=== PATIENT | male | born 1985 | race Caucasian/White ===

== ENCOUNTER 2020-06-15 12:42 | Outpatient (REF) | payer OTHER, SELFPAY | END 2020-06-15 12:43 | disposition home or self-care (01) | LOC: HO.LAB 12:42 | PROVIDERS: Visit Provider Internal Medicine | DX: Z20.828 Contact with and (suspected) exposure to other viral communicable diseases (principal) | CPT/HCPCS: C9803; U0003 ==

== ENCOUNTER 2021-02-07 07:33 | Emergency (ER) | payer OTHER, SELFPAY ==
--- NOTE | ~2021-02-07 | CT_ITS ---
EXAMINATION: CT HEAD WITHOUT CONTRAST CLINICAL INFORMATION: Fall with head injury COMPARISON: None TECHNIQUE: Contiguous axial imaging was performed from the skull base to vertex without intravenous administration of contrast. This CT examination was performed using dose optimization techniques as appropriate, variously including the following: *Automated exposure control *Adjustment of mA and/or kV according to patient size (this includes techniques or standardized protocols for targeted exams where dose is matched to indication/reason for exam; i.e. extremities or head) *Use of iterative reconstruction technique DLP: 665 mGy-cm FINDINGS: There is no evidence of acute intracranial hemorrhage or territorial infarction. No abnormal mass effect or midline shift is seen. No extra-axial fluid collections are identified. The ventricles are normal in size. 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 The osseous structures and soft tissues are normal. The mastoid air cells and visualized portions of the paranasal sinuses are well aerated. CT/CT head/brain wo con IMPRESSION: No acute intracranial pathology. 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 No old studies available for comparison.
[2021-02-07 07:47] VITALS: BP 110/74; BP 138/87; PULSE 48; PULSE 76; RESP 14; TEMP 37.1; O2SAT 99; BMI 21.9
--- NOTE | 2021-02-07 07:48 | ED.FALL ---
HPI - Fall General Chief Complaint: Fall Stated Complaint: HEAD STRIKE,MECHANICAL FALL Time Seen by Provider: 02/07/21 07:46 Source: patient and EMS Mode of arrival: EMS Limitations: other (Multi substance abuse) History of Present Illness HPI Narrative: 36-year-old male came in by ambulance for evaluation of fall and head injury. This is a 36-year-old male with history of polysubstance abuse and being homeless came in by ambulance for evaluation of head injury. Patient is lethargic but arousable, able to provide history patient admitted to using multiple bags heroin last night, tripped and fell hurt his face, no other pain. No nausea, no vomiting, no dizziness, no neck pain. Related Data Allergies Allergy/AdvReac Type Severity Reaction Status Date / Time No Known Allergies Allergy Verified 02/07/21 07:47 Review of Systems Review of Systems: All other systems are reviewed and are negative Constitutional: Reports as per HPI and Reports no additional constitutional complaints Eyes: Reports as per HPI and Reports no additional eye complaints Reports system reviewed and no additional complaints, except as documented Cardiovascular: Reports as per HPI and Reports no additional cardiovascular complaints Respiratory: Reports as per HPI and Reports no additional respiratory complaints Gastrointestinal: Reports as per HPI and Reports no additional gastrointestinal complaints Genitourinary: Reports no additional female genitourinary complaints Musculoskeletal: Reports no additional musculoskeletal complaints Skin/Breast: Reports system reviewed and no additional complaints, except as docu Psychiatric: Reports no additional psychiatric complaints Endocrine: Reports no additional endocrine complaints Hematologic/Lymphatic: Reports no additional hematologic/lymphatic complaints Allergic/Immunologic: Reports no additional allergic/immunologic complaints Reports system reviewed and no additional complaints, except as documented and Reports Abnormal speech present [facility] Past Medical History Medical History (Updated 02/07/21 @ 09:32 by Dana Powers MD) Substance abuse Social History Social History Alcohol intake: current Alcohol intake frequency: other Alcohol type: beer Patient Tobacco Use Status: Current someday Tobacco user Substance Use Type: Crack/Cocaine and Heroin Substance Use Frequency: Chronic Longstanding Last Used Substance: Just Prior to Admission Physical Exam Vital Signs: Vital Signs: Last Vital Signs Temp 98.8 F 02/07/21 07:47 Pulse 48 L 02/07/21 07:47 Resp 14 02/07/21 07:47 BP 110/74 02/07/21 07:47 Pulse Ox 99 02/07/21 07:47 Body Mass Index 21.9 Vital signs have been reviewed as appeared to be correct. Blood pressure normal. Heart rate normal. Respiration rate normal. Temperature normal. Oxygen saturation normal. Appearance: Alert. Oriented X3. No acute distress. Head: Normal external exam. Normocephalic. 3 cm oblique incision in the right side of the forehead, no active bleeding. No Farrar signs noted. No raccoon eyes noted Eyes: PERRLA. EOMI. Conjunctiva and sclera normal. Eyelids normal. ENT: TM's Normal. Pharynx normal. Uvula midline. Moist mucous membranes. No trismus noted. No drooling noted. No muffled voice noted. Neck: Normal inspection. Neck supple. FROM. No adenopathy. Thyroid Normal. No meningeal signs. No neck mass noted. CVS: Normal heart rate and rhythm. Heart sound normal. No murmurs noted. Pulses normal throughout. Respiratory: No respiratory distress. Painless inspiration. Breath sounds normal. No wheezes/rales/rhonchi noted. Chest nontender. No accessory muscle usage noted or decreased air movement noted. Abdomen: Soft and nontender. Bowel sounds normal in all 4 quadrants. No distention noted. No organomegaly noted. No visible injury noted. Back: No CVA tenderness. Full range of motion noted. Skin: Skin warm and dry. Normal skin color. Normal skin turgor. No rashes/lesions/lacerations noted. Extremities: No lower extremity edema. Extremities exhibit normal range of motion. Extremities nontender. Neuro: Oriented X 3. No motor deficit. No sensory deficit. Reflexes normal. Course Course Course Narrative: 36-year-old male with history of substance abuse, came in after having mechanical fall in the street, sustaining right forehead laceration. Patient is awake woken emergency department, head CT is unremarkable, GCS of 15. Procedures Laceration Laceration 1: Site: face (Right forehead) Size (cm): 3 Description: linear Depth: simple, single layer Pre-repair: wound explored and irrigated extensively Skin layer closed with: other (Dermabond) Discharge Plan Discharge Clinical Impression: Fall, Head injury, Forehead laceration, Drug abuse Patient Disposition: Home, Self-Care Instructions: Facial Laceration (ED) Additional Instructions: Follow-up with your primary doctor.
[2021-02-07] MEDS: Diphth,Pertus(ACell),Tet Adult 0.5 ML SYRINGE IM (07:56)
--- NOTE | 2021-02-07 09:53 | PC.NURSE ---
pt continues to rest in stretcher rr even/unlabored, alert to light tactile stimuli, satting 99-100% on ra. ct scan clear.
--- NOTE | 2021-02-07 10:34 | PC.NURSE ---
pt ambulating to and from restroom w steady gait.
--- NOTE | 2021-02-07 11:51 | PC.NURSE ---
pt has been intermittently dozing off throughout er stay, requiring tactile stimuli to remain awake. pt reminded several times following negative work up that if pt does not display sobriety (pt is falling asleep in conversation, slumping over feet when prompted to put shoes on) that pt will recieve nasal narcan dose that is ordered. pt getting agitated w this rn, swearing. given dc paper work and pt has signed.
== END 2021-02-07 11:53 | disposition home or self-care (01) ==
LOC: HO.ED 11:19
PROVIDERS: Emergency Provider Emergency Medicine
DX: S01.81XA Laceration without foreign body of other part of head, initial encounter (principal); F11.10 Opioid abuse, uncomplicated; F14.10 Cocaine abuse, uncomplicated; G44.309 Post-traumatic headache, unspecified, not intractable; W18.30XA Fall on same level, unspecified, initial encounter; Y93.9 Activity, unspecified; Y92.410 Unspecified street and highway as the place of occurrence of the external cause; Y99.9 Unspecified external cause status; F17.200 Nicotine dependence, unspecified, uncomplicated; Z71.6 Tobacco abuse counseling; Z79.899 Other long term (current) drug therapy; Z71.51 Drug abuse counseling and surveillance of drug abuser; Z59.0 Homelessness
CPT/HCPCS: 12013; 70450; 90471; 90715; 99284

== ENCOUNTER 2023-03-29 19:41 | Inpatient (IN) | payer OTHER, SELFPAY ==
--- NOTE | ~2023-03-29 | XR_ITS ---
EXAMINATION: XR WRIST, LEFT XR HAND, LEFT CLINICAL INFORMATION: Swelling and redness COMPARISON: None available. TECHNIQUE: 3 views of the left hand and wrist obtained FINDINGS: There is significant soft tissue swelling along the thenar eminence and also along the dorsal aspect of the hand. I do not appreciate any underlying radiopaque foreign body or soft tissue gas. No acute fracture or dislocation. No bony destructive lesions or erosions. No periosteal reaction. No significant degenerative changes. XR/XR hand wrist LT IMPRESSION: Significant soft tissue swelling along the thenar eminence and also along the dorsal aspect of the hand. I do not appreciate any radiopaque foreign body or soft tissue gas.
[2023-03-29 19:57] VITALS: BP 144/94; PULSE 85; RESP 18; TEMP 37.2; O2SAT 99; BMI 19.2
--- NOTE | 2023-03-29 19:57 | ED_ITS ---
HPI - General Adult General Chief complaint: Extremity Problem Stated complaint: hand swollen Time Seen by Provider: 03/29/23 22:50 Source: patient Mode of arrival: ambulatory Limitations: no limitations History of Present Illness HPI narrative: 38-year-old male with a history of injection drug and cellulitis of his left hand use who presents emergency department for evaluation of swelling and pain of his left hand x2 days. The patient does inject heroin daily. He is also on methadone. He denies recently injecting into his left hand. He states however his left hand is been infected at least twice over the last 2 months, he states that 1 month prior he was at [facility] with a left hand infection your required surgical drainage of the infection. He states that over the past 2 days his left hand is become swollen, red and painful. He denied fever, chills, rhinorrhea, sore throat, cough, chest pain, shortness of breath, fatigue, nausea or vomiting. Patient is a methadone maintenance program he states that he gets methadone 85 mg daily but he missed his dose today. Related Data Home Medications Medication Instructions Recorded Confirmed methadone 10 mg/mL oral concentrate 85 mg PO DAILY 03/30/23 Allergies Allergy/AdvReac Type Severity Reaction Status Date / Time No Known Allergies Allergy Verified 03/29/23 19:55 [facility] Past Medical History [facility] Narrative: Past medical history: Opiate use disorder, methadone maintenance, left hand cellulitis. Surgical history: Surgical drainage of left hand infection 1 month prior at [facility]. Social history: Patient states that he is homeless and he lives in a tent with his girlfriend. He does smoke cigarettes daily. He drinks alcohol 2 to 3 times a week. He injects heroin daily. Medical History Substance abuse Social History Social History Alcohol intake: current Alcohol intake frequency: holidays/special occasions only Alcohol type: beer Patient Tobacco Use Status: Current everyday Tobacco user Smoked in Last 30 Days: Yes Use of substances other than those prescribed or required for medical reasons: Yes Substance Use Type: Crack/Cocaine Substance Use Frequency: Chronic Longstanding Last Used Substance: Days (ago) Advance Directives: No Advance Directives Information Provided: No Nutrition Risks: No Nutritional Risk Physical Exam ED Vital Signs: Vital Signs - 24 hr 03/29/23 19:57 03/29/23 22:40 03/30/23 00:15 Temperature 99 F 98.7 F Pulse Rate 85 66 Respiratory Rate 18 18 12 Blood Pressure 144/94 H 102/72 Pulse Oximetry 99 97 Oxygen Delivery Method Room Air Room Air BMI result Body Mass Index 19.2 Vital signs revealed an elevated blood pressure of 144/94 otherwise unremarkable Exam: General: Somnolent, answers questions appropriately, in no distress Head: Normocephalic, atraumatic EENT: PERRL, Lids normal, sclera normal, conjunctiva normal, nose normal , ears normal, throat without erythema or exudates Neck: Supple, no adenopathy, trachea midline and nontender Lung: breath sounds symmetric, no wheezing, rales or rhonchi Chest: symmetric movement, nontender Heart: regular rate and rhythm, normal S1, S2 no murmurs or rubs Abdomen: soft, non-tender, nondistended, normal bowel sounds Back: no vertebral tenderness, no CVAT Extremities: The patient has a superficial large abscess to the left lateral aspect of the thumb, the patient's left hand is erythematous with diffuse induration/swelling more prominent over the thenar eminence. Neuro: Somnolent, oriented, normal speech, cranial nerves intact, moves all extremities symmetrically Psych: Pleasant, cooperative Course Course Course Narrative: RME: 38 yold male presents to the ED for left hand swelling for the past couple of days. Patient has pmh of IV drug use. dEnies injection into hand. labs and xray ordered Medications Administered Generic Name Dose Route Start Last Admin Trade Name Freq PRN Reason Stop Dose Admin Sodium Chloride 3 ml 03/30/23 08:00 03/30/23 07:31 0.9 % Sodium Chloride Flush 3 Ml Syringe IVFLUSH 3 ml QSHIFT DEE Administration Discontinued Medications Generic Name Dose Route Start Last Admin Trade Name Freq PRN Reason Stop Dose Admin Diphenhydramine HCl 50 mg 03/30/23 00:58 03/30/23 01:10 Diphenhydramine Hcl 50 Mg/Ml Vial IVPUSH 03/30/23 00:59 50 mg ONCE STA Administration Vancomycin HCl 1,500 mg/ 500 mls @ 333.333 mls/hr 03/29/23 23:10 03/30/23 03:34 Sodium Chloride IV 03/30/23 00:39 Infused ONCE ONE Infusion Ceftriaxone Sodium 1 gm/ 50 mls @ 100 mls/hr 03/29/23 23:10 03/30/23 00:15 Sodium Chloride IV 03/29/23 23:39 Infused ONCE ONE Infusion Sodium Chloride 1,000 mls @ 999 mls/hr 03/29/23 23:38 03/30/23 00:30 Ns IV 03/30/23 00:38 Infused .Q1H1M STA Infusion Ketorolac Tromethamine 15 mg 03/29/23 23:10 03/29/23 23:41 Ketorolac Tromethamine 15 Mg/Ml Vial IVPUSH 03/29/23 23:11 15 mg ONCE STA Administration Methadone HCl 20 mg 03/29/23 23:10 03/30/23 00:02 Methadone Hcl 20 Mg/2 Ml Oral.Conc PO 03/29/23 23:11 20 mg ONCE ONE Administration Procedures Abscess I/D Site: hand Side (if applicable): left Technique: incised with blade Amount of fluid expressed (mL): 30 Sent for culture/gram staining?: Yes Irrigation: No Packing used?: none Complications: pain Medical Decision Making Medical Decision Making MDM Narrative: 38-year-old male with history of opiate use disorder, injects heroin daily, on a methadone maintenance program, cellulitis of the left hand required surgical drainage 1 month prior [facility] who presents emergency department for evaluation of 2 days of left hand swelling, erythema and pain. Patient's exam did reveal a superficial abscess to left thumb which was incised and drained by me here in the emergency department, approximately 30 cc of purulent material was expressed from the incision and a wound culture was sent to the lab. Following laboratory evaluation was ordered: CBC, CMP, lactic acid, CRP, ESR, blood cultures x2, x-ray of the left hand. 2321: Laboratory evaluation was [place] [address] with a left shift 84 neutrophils, elevated CRP 5.59 elevated ESR 43. X-rays did not reveal any abnormal gas pattern but did reveal significant soft tissue swelling of the hand mainly over the thenar eminence. The patient was treated with vancomycin 1500 mg IV and ceftriaxone 1 g IV. Patient was given methadone 40 mg orally to prevent opiate withdrawal since the patient is on a methadone maintenance program and did not get his methadone today. Patient's dose we confirmed in the morning. Patient also given Toradol 15 mg IV for his pain. I did discuss admission with the covering orthopedic provider and with the covering hospitalist. 0059: Patient complained of pruritus, patient does not have a rash he does not appear to be red I asked the nurse to reduce the rate of infusion of the vancomycin and the patient was ordered to get Benadryl 50 mg IV. At this time I do not think that the patient has allergic reaction and his symptoms are just consistent with receiving vancomycin. Differential Diagnosis Differential Diagnoses: The differential diagnosis associated with the presentation includes Differential diagnosis includes was not limited to cellulitis of the left hand, superficial abscess , deep abscess, Admission/Observation Consideration of admission/observation: Escalation of care including admission/observation considered Consult Healthcare Provider Management of the patient was discussed with: Hospitalist (Dr. Dawson) and Metal Treater (Physician assistant professor of dietetics, Brett Guzmán) Lab Data MDM Lab Attestation statement: I reviewed the patient's lab results. My interpretation patient's laboratory evaluation is as follows: WBC elevated 13,800, left shift 84 neutrophils. CRP elevated 5.59. ESR elevated 43. Lactic acid elevated 2.4. 03/29/23 20:22 03/30/23 04:57 Labs: Lab Results 03/29/23 03/29/23 03/29/23 Range/Units 20:20 20:22 20:23 WBC 13.8 H (4.8-10.8) X10*3/uL RBC 3.80 L (4.60-5.80) X10*6/uL Hgb 13.5 L (14.0-18.0) g/dl Hct 37.6 L (42.0-52.0) % MCV 98.9 H (80.0-98.0) fL MCH 35.5 H (27.0-33.0) pg MCHC 35.9 (31.0-36.0) g/dl RDW 16.5 H (11.0-16.0) % Plt Count 305 (160-400) X10*3/uL MPV 8.2 L (9.4-12.4) fL Immature Gran % (Auto) 0.5 H (0.0-0.4) % Neut % (Auto) 84.7 H (45-73) % Lymph % (Auto) 9.9 L (20-40) % Sanders % (Auto) 4.1 (2-11) % Eos % (Auto) 0.4 (0-4) % Baso % (Auto) 0.4 (0-2) % Lymph # (Auto) 1.4 (1.2-4.9) X10*3/uL Sanders # (Auto) 0.6 (0.1-1.2) X10*3/uL Eos # (Auto) 0.1 (0.0-0.4) X10*3/uL Baso # (Auto) 0.1 (0.0-0.2) X10*3/uL Abs Immat Gran (auto) 0.07 H (0.00-0.03) X10*3/uL Absolute Neuts (auto) 11.7 H (2.0-8.3) x10*3/uL Absolute Nucleated RBC 0.000 (0.0-0.012) X10*3/uL Nucleated RBC % (auto) 0.0 (0.0-0.2) /100WBC ESR 43 H (0-15) MM/HR Sodium 140 (135-145) mmol/L Potassium 4.1 (3.3-5.1) mmol/L Chloride 98 (96-108) mmol/L Carbon Dioxide 35 H (22-29) mmol/L Anion Gap 11 L (12-20) BUN 14 (9-16) mg/dL Creatinine 0.85 (0.5-1.4) mg/dL Estim Creat Clear Calc 100.0 Estimated GFR > 60 Random Glucose 124 H (60-115) mg/dL Lactic Acid 2.4 H* (0.5-2.0) mmol/L Lactic Acid F/U @ 2Hr (0.5-2.0) mmol/L Calcium 9.6 (8.4-10.2) mg/dL Total Bilirubin 1.8 H (0.0-1.0) mg/dL AST 17 (5-37) U/L ALT 14 (0-40) U/L Alkaline Phosphatase 65 (39-117) U/L C-Reactive Protein 5.59 H (< or = 0.50) mg/dL Total Protein 8.1 H (6.5-8.0) g/dL Albumin 4.1 (3.5-5.0) g/dL 03/29/23 Range/Units 22:45 WBC (4.8-10.8) X10*3/uL RBC (4.60-5.80) X10*6/uL Hgb (14.0-18.0) g/dl Hct (42.0-52.0) % MCV (80.0-98.0) fL MCH (27.0-33.0) pg MCHC (31.0-36.0) g/dl RDW (11.0-16.0) % Plt Count (160-400) X10*3/uL MPV (9.4-12.4) fL Immature Gran % (Auto) (0.0-0.4) % Neut % (Auto) (45-73) % Lymph % (Auto) (20-40) % Sanders % (Auto) (2-11) % Eos % (Auto) (0-4) % Baso % (Auto) (0-2) % Lymph # (Auto) (1.2-4.9) X10*3/uL Sanders # (Auto) (0.1-1.2) X10*3/uL Eos # (Auto) (0.0-0.4) X10*3/uL Baso # (Auto) (0.0-0.2) X10*3/uL Abs Immat Gran (auto) (0.00-0.03) X10*3/uL Absolute Neuts (auto) (2.0-8.3) x10*3/uL Absolute Nucleated RBC (0.0-0.012) X10*3/uL Nucleated RBC % (auto) (0.0-0.2) /100WBC ESR (0-15) MM/HR Sodium (135-145) mmol/L Potassium (3.3-5.1) mmol/L Chloride (96-108) mmol/L Carbon Dioxide (22-29) mmol/L Anion Gap (12-20) BUN (9-16) mg/dL Creatinine (0.5-1.4) mg/dL Estim Creat Clear Calc Estimated GFR Random Glucose (60-115) mg/dL Lactic Acid (0.5-2.0) mmol/L Lactic Acid F/U @ 2Hr 1.1 (0.5-2.0) mmol/L Calcium (8.4-10.2) mg/dL Total Bilirubin (0.0-1.0) mg/dL AST (5-37) U/L ALT (0-40) U/L Alkaline Phosphatase (39-117) U/L C-Reactive Protein (< or = 0.50) mg/dL Total Protein (6.5-8.0) g/dL Albumin (3.5-5.0) g/dL Radiology Impression Discussion of test interpretation with radiology: I have reviewed the radiologist's reading. Radiologist Impression: XR hand wrist LT IMPRESSION: Significant soft tissue swelling along the thenar eminence and also along the dorsal aspect of the hand. I do not appreciate any radiopaque foreign body or soft tissue gas. Dictated By: David Hampton MD Chronic Conditions Patient?s care impacted by: Other (Opiate use disorder with daily injection heroin use) Discharge Plan Discharge Clinical Impression: Cellulitis of hand, left, Abscess of left hand, Heroin use disorder, severe, Methadone maintenance therapy patient Patient Disposition: Admitted As Inpatient
--- OUTSIDE RECORDS SUMMARY | 2023-03-29 20:02 | XMS_ITS | Continuity of Care Document ---
Author Name Unknown Organization [facility] ter Address [address] [place] [id number]- Care Team Providers Care Family Consumer Science Teacher Name Role Phone Angie COBOS, Alissa D Primary Care Physician Encounter [facility] [place] Date(s): 08/03/21 - 08/03/[address] [address]- Encounter Diagnosis 2019 novel coronavirus disease (COVID-19)(Final) - 08/03/21 Discharge Disposition: A-D/C Home Attending Physician: Ulises Dey MD Admitting Physician: Ulises Dey MD Referring Physician: Not on Staff, Referring MD Allergies, Adverse Reactions, Alerts No Known Allergies Immunizations Given and Recorded Vaccine Date Status Refusal Reason Meningococcal Conjugate Vaccine 12/27/12 Recorded influenza virus vaccine, inactivated 04/22/11 Neri rded hepatitis B adult vaccine 12/17/10 Recorded Medications Buprenorphine = 300 mg, Subcutaneous Injection, Every 30 days, 0 Refills, Maintenance, 01/18/21 9:07:00 EDT, Injection, Partial fill upon patient request if the prescription is for a schedule II opioid drug. Start Date: 01/18/21 Status: Ordered ledipasvir-sofosbuvir 90 mg-400 mg oral tablet 1 tablet, By Mouth, Daily, # 28 tablet, 0 Refills, Maintenance, 01/18/21 9:13:00 EDT, Tablet, Partial fill upon patient request if the prescription is for a schedule II opioid drug. Start Date: 01/18/21 Status: Ordered Problem List Condition Effective Dates Status Health Status Inform ant Neck abscess(Confirmed) Active Results Radiology Reports * Exam Date Time Procedure Performing Provider Status 08/03/21 3:03 PM Chest Portable Archambeau, Kianna; Auth (Verified) Notes: (Chest Portable) Reason For Exam: Chest Pain;Other: RESULT: Chest Portable Chest Portable Hx of Present Illness: CP, SOB since last night. CP worse w inspiration and focused on left chest wall. Cough.; Reason: Other:; Chest Pain; Clinical Question(s): Other: COMPARISON: 06/10/2021 FINDINGS: LINES AND TUBES: None. LUNGS AND PLEURA: Subtle hazy opacity in the right medial lung base, stable from prior study and thus less likely to represent an acute process. No new focal consolidation seen. Normal pulmonary vascularity. No pleural effusion. No pneumothorax. HEART, MEDIASTINUM AND YANG: Heart is normal in size. Normal upper mediastinal and hilar contour. BONES AND SOFT TISSUES: No acute abnormality. IMPRESSION: Subtle hazy opacity in the medial right lung base, stable from prior study, could be related to superimposition of bronchovascular structures, less likely to represent an acute process. May consider follow-up nonemergent CT chest for better characterization. WSN: [id number] Ordering Physician: Wayne Kaufman Dictated By: Gabbie Carmichael MD Dictated Date/Time: 08/03/21 3:13 pm Reviewed By: Gabbie Carmichael MD Signed By: Gabbie Carmichael MD Signed Date/Time: 08/03/21 3:13 pm Transcribed By: TRINIDAD Transcribed Date/Time: 08/03/21 3:09 pm Vital Signs Most recent to oldest [Reference Range]: 1 2 3 Oxygen Saturation [94-100 %] 99 % (08/03/21 6:46 PM) 99 % (08/03/21 5:37 PM) 97 % (08/03/21 4:32 PM) Pulse Rate [55-90 bpm] 61 bpm (08/03/21 6:46 PM) 53 bpm *L* (08/03/21 5:37 PM) 54 bpm *L* (08/03/21 4:32 PM) Blood Pressure [90-138/55-84 mm Hg] 120/71mm Hg (08/03/21 6:46 PM) 120/74mm Hg (08/03/21 5:37 PM) 115/71mm Hg (08/03/21 4:32 PM) Respiratory Rate [16-30 br/min] 18 br/min (08/03/21 6:46 PM) 17 br/min (08/03/21 5:37 PM) 13 br/min *L* (08/03/21 4:32 PM) Temperature [96.8-100.4 DegF] 98.1 DegF (08/03/21 6:46 PM) 98.1 DegF (08/03/21 5:37 PM) 98.0 DegF (08/03/21 4:32 PM) Mode of Delivery (Oxygen) Room air (08/03/21 6:46 PM) Room air (08/03/21 5:37 PM) Room air (08/03/21 4:32 PM) Blood pressure sites Arm, left (08/03/21 6:46 PM) Arm, left (08/03/21 5:37 PM) Arm, left (08/03/21 4:32 PM) Temperature Route Oral (08/03/21 6:46 PM) Oral (08/03/21 5:37 PM) Oral (08/03/21 4:32 PM) Social History Social History Type Response Smoking Status 10 or more cigarette s (1/2 pack or more)/day in last 30 days; Number of years: 26; entered on: 01/18/21 Sex
--- OUTSIDE RECORDS SUMMARY | 2023-03-29 20:02 | XMS_ITS | Continuity of Care Document ---
Author Name Unknown Organization [facility] Address [address] [place] [address]- Care Team Providers Care Jewelry Manager Name Role Phone Nicolas COBOS, Cori Bruce Primary Care Physic zander Encounter [facility] [place] Date(s): 09/14/19 - 09/24/19 [facility] [address] [place] [address]- [facility] Attending Physician: Admtr, Ar8 Admitting Physician: Admtr, Ar8 Referring Physician: Admtr, Ar8 Allergies, Adverse Reactions, Alerts Substance Reaction Severity Status NKA Active Medications Narcan 4 mg/0.1 mL nasal spray = 4 mg, Naris, Left, Once, may repeat every 2 to 3 minutes until patient responds make sure your family knows where you keep this so if you overdose again they may be able to save you., # 2 each, 0 Refills, Soft Stop, 02/02/19 22:47:11 EDT Start Date: 02/02/19 Status: Ordered Suboxone 2 mg-0.5 mg sublingual film 1 film, Sublingual, Daily, dissolve under the tongue, 0 Refills, Maintenance, 09/14/19 15:35:00 EST, Film Start Date: 09/14/19 Status: Ordered Social History Social History Type Response Smoking Status 10 or more cigarette s (1/2 pack or more)/day in last 30 days entered on: 02/02/19 Sex
--- OUTSIDE RECORDS SUMMARY | 2023-03-29 20:03 | XMS_ITS | Continuity of Care Document ---
Author Name Unknown Organization [facility] ter Address [address] [place] [id number]- Care Team Providers Care Special Needs Librarian Name Role Phone Angie COBOS, Alissa Lydia Primary Care Physician Encounter [facility] Date(s): 01/18/21 - 01/22/[address] [address]- Encounter Diagnosis Neck swelling(Final) - 01/18/21 Abscess(Final) - 01/18/21 Hematoma(Final) - 01/18/21 Discharge Disposition: A-D/C Home Attending Physician: Alvarado Sesay MD Admitting Physician: Rebekah Mckeon MD Referring Physician: Not on Staff, Referring MD Allergies, Adverse Reactions, Alerts Substance Reaction Severity Status NKA Active Immunizations Given and Recorded Vaccine Date Status Refusal Reason Meningococcal Conjugate Vaccine 12/27/12 Recorded influenza virus vaccine, inactivated 04/22/11 Neri rded hepatitis B adult vaccine 12/17/10 Recorded Medications Aspirin Tablet 325 mg, EC Tablet, By Mouth, Every 12 hours, PRN for Other, Prior to vanco, Routine, 01/19/21 12:43:00 EDT Notes: Do Not Crush Start Date: 01/19/21 Stop Date: 02/18/21 Status: Ordered Buprenorphine = 300 mg, Subcutaneous Injection, Every 30 days, 0 Refills, Maintenance, 01/18/21 9:07:00 EDT, Injection, Partial fill upon patient request if the prescription is for a schedule II opioid drug. Start Date: 01/18/21 Status: Ordered ibuprofen 600 mg oral tablet 600 mg, 1, tablet, By Mouth, 3 times a day, PRN, for 10 days, Take as needed for pain with food or milk, avoid alcohol, # 30 tablet, Refills 0, Tot. Refills 0, Acute 02/01/21 11:49:00 EDT, Pain , Mild, 01/22/21 11:49:00 EDT, Route to Pharmacy Electron... Start Date: 01/22/21 Stop Date: 02/01/21 Status: Ordered ledipasvir-sofosbuvir 90 mg-400 mg oral tablet 1 tablet, By Mouth, Daily, # 28 tablet, 0 Refills, Maintenance, 01/18/21 9:13:00 EDT, Tablet, Partial fill upon patient request if the prescription is for a schedule II opioid drug. Start Date: 01/18/21 Status: Ordered sulfamethoxazole-trimethoprim 800 mg-160 mg oral tablet 1 tablet, By Mouth, Every 12 hours, for 4 days, # 8 tablet, 0 Refills, Acute 01/26/21 11:46:00 EDT,01/22/21 11:46:00 EDT, Tablet, [facility], [facility] 3, Partial fill upon patient request if the prescription is for a schedule II opioid drug., 1 tab... Start Date: 01/22/21 Stop Date: 01/26/21 Status: Ordered Problem List Condition Effective Dates Status Health Status Inform ant Neck abscess(Confirmed) Active Results Orders for Microbiology Reports Name Date Anaerobic Culture (ANAEROBIC CULTURE) 06/02 Wound Deep Culture w/ Gram Smear (DEEP W OUND CULTURE) 01/20/21 Blood Culture 01/18/21 Blood Culture #2 01/18/21 Blood Culture 01/17/21 Microbiology Reports TEST:Anaerobic Culture STATUS:Auth (Verified) BODY SITE: SOURCE:OTHER COLLECTED DATE/TIME:01/20/21 8:20 AM Anaerobic Culture SPECIMEN DESCRIPTION : OTHER CULTURE RIGHT NECK SPECIAL REQUESTS : NONE CULTURE : NO ANAEROBES ISOLATED REPORT STATUS : FINAL 01/22/2021 TEST:Deep Wound Culture STATUS:Auth (Verified) BODY SITE: SOURCE:OTHER COLLECTED DATE/TIME:01/20/21 8:20 AM Deep Wound Culture SPECIMEN DESCRIPTION : OTHER CULTURE RIGHT NECK SPECIAL REQUESTS : NONE GRAM STAIN : 3+ POLYMORPHONUCLEAR LEUKOCYTES 1+ GRAM POSITIVE COCCI CULTURE : 4+ STAPHYLOCOCCUS AUREUS, METHICILLIN RESISTANT. METHICILLIN RESISTANT STAPH AUREUS SHOULD BE CONSIDERED CLINICALLY RESISTANT TO ALL BETA-LACTAMS. REPORT STATUS : FINAL 01/22/2021 ORGANISM 4+ STAPHYLOCOCCUS AUREUS, METHICILLIN RESISTANT. METHICILLIN RESISTANT STAPH AUREUS SHOULD BE CONSIDERED CLINICALLY RESISTANT TO ALL BETA-LACTAMS. METHOD MIN. INHIB. CONC. (MCG/ML) CIPROFLOXACIN SUSCEPTIBLE CLINDAMYCIN SUSCEPTIBLE ERYTHROMYCIN RESISTANT INDUCIBLE CLINDAMYCI NEGATIVE LEVOFLOXACIN SUSCEPTIBLE LINEZOLID SUSCEPTIBLE OXACILLIN RESISTANT RIFAMPIN SUSCEPTIBLE RIFAMPIN RIFAMPIN SHOULD NOT BE USED ALONE FOR ANTIMICROBIAL RIFAMPIN THERAPY. TETRACYCLINE SUSCEPTIBLE TRIMETH/SULFAMETHOX SUSCEPTIBLE VANCOMYCIN SUSCEPTIBLE TEST:Blood Culture, Second Order STATUS:Unauthenticated BODY SITE: SOURCE:Blood COLLECTED DATE/TIME:01/18/21 5:07 AM Blood Culture, Second Order SPECIMEN DESCRIPTION : BLOOD AC SPECIAL REQUESTS : NONE CULTURE : NO GROWTH 4 DAYS REPORT STATUS : PRELIMINARY REPORT TEST:Blood Culture STATUS:Unauthenticated BODY SITE: SOURCE:Blood COLLECTED DATE/TIME:01/18/21 4:21 AM Blood Culture SPECIMEN DESCRIPTION : BLOOD FA SPECIAL REQUESTS : NONE CULTURE : NO GROWTH 4 DAYS REPORT STATUS : PRELIMINARY REPORT TEST:Blood Culture STATUS:Auth (Verified) BODY SITE: SOURCE:Blood COLLECTED DATE/TIME:01/17/21 10:02 PM Blood Culture SPECIMEN DESCRIPTION : BLOOD NO SITE SPECIAL REQUESTS : NONE CULTURE : NO GROWTH 5 DAYS. REPORT STATUS : FINAL 01/22/2021 Vital Signs Most recent to oldest [Reference Range]: 1 2 3 Weight 62.2 kg (01/20/21 7:28 AM) 62.2 kg (01/18/21 9:32 AM) 63.0 kg (01/18/21 3:24 AM) Oxygen Saturation [94-100 %] 99 % (01/22/21 11:35 AM) 99 % (01/22/21 6:44 AM) 100 % (01/22/21 12:23 AM) Pulse Rate [55-90 bpm] 76 bpm (01/22/21 11:35 AM) 77 bpm (01/22/21 6:44 AM) 53 bpm *L* (01/22/21 12:23 AM) Blood Pressure [90-138/55-84 mm Hg] 109/73mm Hg (01/22/21 11:35 AM) 135/52mm Hg (01/22/21 6:44 AM) 102/53mm Hg (01/22/21 12:23 AM) Respiratory Rate [16-30 br/min] 18 br/min (01/22/21 11:35 AM) 18 br/min (01/22/21 6:44 AM) 16 br/min (01/22/21 5:29 AM) Temperature [96.8-100.4 DegF] 97.4 DegF (01/22/21 11:35 AM) 97.3 DegF (01/22/21 6:44 AM) 98.0 DegF (01/22/21 12:23 AM) Liters per Minute 0 L/min (01/20/21 7:28 AM) Mode of Delivery (Oxygen) Room air (01/22/21 11:35 AM) Room air (01/22/21 6:44 AM) Room air (01/22/21 12:23 AM) Blood pressure sites Arm, left (01/22/21 11:35 AM) Arm, left (01/22/21 6:44 AM) Arm, left (01/22/21 12:23 AM) Temperature Route Oral (01/22/21 11:35 AM) Oral (01/22/21 6:44 AM) Oral (01/22/21 12:23 AM) Dry Weight 62.2 kg (01/20/21 7:28 AM) 63.0 kg (01/18/21 3:24 AM) 63.0 kg (01/17/21 9:12 PM) Weight Obtained Via Standing scale (01/20/21 7:28 AM) Standing scale (01/18/21 9:32 AM) Standing scale (01/17/21 9:12 PM) Dry Weight Obtained Via Standing scale (01/20/21 7:28 AM) Standing scale (01/17/21 9:12 PM) Social History Social History Type Response Smoking Status 10 or more cigarette s (1/2 pack or more)/day in last 30 days; Number of years: 25; entered on: 01/18/21 Sex
--- OUTSIDE RECORDS SUMMARY | 2023-03-29 20:03 | XMS_ITS | Continuity of Care Document ---
Author Name Unknown Organization [facility] ter Address [address] [place] [id number]- Care Team Providers Care Preschool Director Name Role Phone Angie COBOS, Alissa Freeman Primary Care Physician Encounter [facility] Date(s): 01/12/22 - 01/12/[address] [address]- Discharge Disposition: A-D/C Walkout Attending Physician: Not on Staff, Attending MD Admitting Physician: Not on Staff, Admitting MD Referring Physician: Not on Staff, Referring [...] Health Status Inform ant Neck abscess(Confirmed) Active Vital Signs Most recent to oldest [Reference Range]: 1 Height 164 cm (01/12/22 2:06 PM) Weight 64.8 kg (01/12/22 2:06 PM) Oxygen Saturation [94-100 %] 98 % (01/12/22 2:06 PM) Pulse Rate [55-90 bpm] 80 bpm (01/12/22 2:06 PM) Body Mass Index [18.5-24.99] 24.09 (01/12/22 2:06 PM) Blood Pressure [90-138/55-84 mm Hg] 118/ 80mm Hg (01/12/22 2:06 PM) Respiratory Rate [16-30 br/min] 19 br/mi n (01/12/22 2:06 PM) Temperature [96.8-100.4 DegF] 97.6 DegF (01/12/22 2:06 PM) Mode of Delivery (Oxygen) Room air (01/12/22 2:06 PM) Blood pressure sites Arm, left (01/12/22 2:06 PM) Temperature Route Oral (01/12/22 2:06 PM) Dry Weight 64.8 kg (01/12/22 2:06 PM) Weight Obtained Via Standing scale (01/12/22 2:06 PM) Social History Social History Type Response Smoking Status 10 or more cigarette s (1/2 pack or more)/day in last 30 days; Number of years: 25; entered on: 01/18/21 Sex
--- OUTSIDE RECORDS SUMMARY | 2023-03-29 20:03 | XMS_ITS | Continuity of Care Document ---
Author Name Unknown Organization [facility] ter Address [address] [place] [id number]- Care Team Providers Care Veterinary Surgeon Name Role Phone Angie COBOS, Alissa D Primary Care Physician [place] [facility] [place] - 01/14/[address] [address]- Encounter Diagnosis Swelling of the right hand, eschar dorsum left hand(Final) - 01/14/23 Discharge Disposition: A-D/C Home Attending Physician: Albert Phillips MD Admitting Physician: Albert Phillips MD Referring Physician: Not on Staff, Referring MD Allergies, Adverse Reactions, Alerts No Known Allergies Immunizations Given and Recorded Vaccine Date Status Refusal Reason tetanus/diphtheria/pertussis, acel(Tdap) 04/25/22 Given Meningococcal Conjugate Vaccine 12/27/12 Recorded influenza virus vaccine, inactivated 04/22/11 Neri rded hepatitis B adult vaccine 12/17/10 Recorded Medications Bactrim DS 800 mg-160 mg oral tablet 1 tablet, By Mouth, 2 times a day, for 7 days, # 14 tablet, 0 Refills, Acute 01/21/23 14:35:00 EDT,01/14/23 14:35:00 EDT, Tablet, [facility], Partial fill upon patient request if the prescription is for a schedule II opioid drug., 1 tab... Start Date: 01/14/23 Stop Date: 01/21/23 Status: Ordered cephalexin monohydrate 500 mg oral capsule 1 capsule = 500 mg, By Mouth, 4 times a day, for 14 days, # 56 capsule, 0 Refills, Acute 01/28/23 14:37:00 EDT, 01/14/23 14:37:00 EDT, Capsule, [facility], Partial fill upon patientrequest if the prescription is for a schedule II opioid... Start Date: 01/14/23 Stop Date: 01/28/23 Status: Ordered methadone 10 mg oral tablet = 110 mg, By Mouth, Daily, 0 Refills, Maintenance, 04/25/22 8:24:00 EDT, Partial fill upon patient request if the prescription is for a schedule II opioid drug. Start Date: 04/25/22 Status: Ordered Problem List Condition Confirmation Course Effective Dates Status [facility] atus Informant Neck abscess Confirmed Active Results Radiology Reports * Exam Date Time Procedure Performing Provider Status 01/14/23 1:[address] Ext Upper W/ Contrast Right Nadja Turk; Auth (Verified) Notes: (CT Ext Upper W/ Contrast Right) Reason For Exam: Pain RESULT: CT Ext Upper W/ Contrast Right CT Ext Upper W/ Contrast Right Hx of Present Illness: right hand pain x few days- puffy and swollen- No fevers, no drainage on this wrist- left wrist with swelling and open area as well.; Reason: Pain; Clinical Question(s): Wrist.IV drug use. TECHNIQUE: Helical CT of the right upper extremity extending from the distal forearm into the hand was performed with contrast formatted in 3 planes. 100 cc of Omnipaque 300 was administered intravenously. Weight-based protocol using automatic tube modulation was used to optimize exposure parameters. CTDIvol Body: 8.00 mGy, DLP Body: 253 mGy*cm. COMPARISONS: Right wrist radiographs from earlier today and right forearm radiographs dated 04/25/2022. FINDINGS: Bones and joints: No fracture or dislocation is present. No erosions, productive changes or abnormal calcifications are noted. Soft Tissues: There is fluid and increased enhancement of the tendon sheaths of the extensor carpi radialis brevis and longus tendon sheaths beginning at the level of the radiocarpal joint and extending distally. Similar small amount of fluid within and enhancement of the extensor pollicis longus tendon sheath. No subcutaneous gas. Included musculature appears unremarkable for the CT technique. There is subcutaneous edema on the dorsum of the hand extending into the distal forearm. IMPRESSION: Fluid within and increased enhancement of the tendon sheaths of the extensor carpi radialis brevis and longus and extensor pollicis longus tendons, concerning for tenosynovitis, possibly infectious tenosynovitis. Dorsal subcutaneous edema, which is nonspecific and can be seen with cellulitis. No CT evidence of osteomyelitis. WSN: [id number] Ordering Physician: David Felix Dictated By: Mary Lou Barillas MD Dictated Date/Time: 01/14/23 2:08 pm Reviewed By: Mary Lou Barillas MD Signed By: Mary Lou Barillas MD Signed Date/Time: 01/14/23 2:08 pm Transcribed By: TRINIDAD Transcribed Date/Time: 01/14/23 1:57 pm * Exam Date Time Procedure Performing Provider Status 01/14/23 10:36 AM Wrist Comp Min 3 Views Left Carlene Miranda; Auth (Verified) Notes: (Wrist Comp Min 3 Views Left) Reason For Exam: with Pain;Trauma RESULT: Wrist Comp Min 3 Views Left Wrist Comp Min 3 Views Right, Wrist Comp Min 3 Views Left REASON: Trauma; with Pain; Clinical Question(s): Foreign Body COMPARISON: Right forearm x-ray 04/25/2022 FINDINGS: RIGHT WRIST: No fracture or dislocation. No arthritic change. Normal carpal configuration. Intact radial and ulnar styloid processes. Mild soft tissue swelling overlying the dorsal aspect of the hand and wrist. LEFT WRIST: No fracture or dislocation. No arthritic change. Normal carpal configuration. Intact radial and ulnar styloid processes. Small skin defect overlying the dorsal wrist, with moderate focal soft tissue swelling overlying the dorsal wrist. IMPRESSION: 1. No acute osseous abnormality or foreign body identified in the right or left wrist. 2. Small skin defect overlying the dorsal left wrist with underlying focal soft tissue swelling. I have personally reviewed the images and I agree with this report. WSN: [id number] Ordering Physician: Albert Phillips MD Dictated By: Sunshine Gleason DO Dictated Date/Time: 01/14/23 10:58 a Reviewed By: Tristian Alcaraz MD Signed By: Tristian Alcaraz MD Signed Date/Time: 01/14/23 11:03 am Transcribed By: TRINIDAD Transcribed Date/Time: 01/14/23 10:43 am * Exam Date Time Procedure Performing Provider Status 01/14/23 10:36 AM Wrist Comp Min 3 Views Right Carlene Miranda; Auth (Verified) Notes: (Wrist Comp Min 3 Views Right) Reason For Exam: with Pain;Trauma RESULT: Wrist Comp Min 3 Views Right Wrist Comp Min 3 Views Right, Wrist Comp Min 3 Views Left REASON: Trauma; with Pain; Clinical Question(s): Foreign Body COMPARISON: Right forearm x-ray 04/25/2022 FINDINGS: RIGHT WRIST: No fracture or dislocation. No arthritic change. Normal carpal configuration. Intact radial and ulnar styloid processes. Mild soft tissue swelling overlying the dorsal aspect of the hand and wrist. LEFT WRIST: No fracture or dislocation. No arthritic change. Normal carpal configuration. Intact radial and ulnar styloid processes. Small skin defect overlying the dorsal wrist, with moderate focal soft tissue swelling overlying the dorsal wrist. IMPRESSION: 1. No acute osseous abnormality or foreign body identified in the right or left wrist. 2. Small skin defect overlying the dorsal left wrist with underlying focal soft tissue swelling. I have personally reviewed the images and I agree with this report. WSN: [id number] Ordering Physician: Albert Phillips MD Dictated By: Sunshine Gleason DO Dictated Date/Time: 01/14/23 10:58 a Reviewed By: Tristian Alcaraz MD Signed By: Tristian Alcaraz MD Signed Date/Time: 01/14/23 11:03 am Transcribed By: TRINIDAD Transcribed Date/Time: 01/14/23 10:43 am Vital Signs Most recent to oldest [Reference Range]: 1 2 3 Height 179 cm (01/14/23 1:44 PM) 179 cm (01/14/23 10:33 AM) 179 cm (01/14/23 9:25 AM) Weight 68 kg (01/14/23 1:44 PM) 68 kg (01/14/23 10:33 AM) 68 kg (01/14/23 9:25 AM) Oxygen Saturation [94-100 %] 100 % (01/14/23 1:44 PM) 99 % (01/14/23 9:25 AM) Pulse Rate [55-90 bpm] 48 bpm *L* (01/14/23 1:44 PM) 49 bpm *L* (01/14/23 9:25 AM) Body Mass Index [18.5-24.99 kg/m2] 21.22 kg/m2 (01/14/23 1:44 PM) 21.22 kg/m2 (01/14/23 9:25 AM) Blood Pressure [90-138/55-84 mm Hg] 120/83mm Hg (01/14/23 1:44 PM) 116/82mm Hg (01/14/23 9:25 AM) Respiratory Rate [16-30 br/min] 16 br/min (01/14/23 1:44 PM) 18 br/min (01/14/23 9:25 AM) Temperature [96.8-100.4 DegF] 97.3 DegF (01/14/23 1:44 PM) 97.7 DegF (01/14/23 9:25 AM) Mode of Delivery (Oxygen) Room air (01/14/23 1:44 PM) Room air (01/14/23 9:25 AM) Blood pressure sites Arm, left (01/14/23 1:44 PM) Arm, right (01/14/23 9:25 AM) Temperature Route Oral (01/14/23 1:44 PM) Oral (01/14/23 9:25 AM) Dry Weight 68 kg (01/14/23 1:44 PM) 68 kg (01/14/23 10:33 AM) 68 kg (01/14/23 9:25 AM) Weight Obtained Via Patient/family state d (01/14/23 9:25 AM) Dry Weight Obtained Via Patient/family s tated (01/14/23 9:25 AM) Social History Social History Type Response Smoking Status 10 or more cigarette s (1/2 pack or more)/day in last 30 days; Number of years: 26; entered on: 01/18/21 Sex Consult note * Lady Fan: MODIFY, PERFORM, MODIFY, MODIFY Event Display: Consultation Note Authored Date: [id number] Patient: ??INA TAYLOR ? Age:??37 Years?Sex:??Male?:??1985?? Chief Complaint/Reason for Consult Bilateral wrist pain ?? Orthopedic consultation requested by SHARRON Felix??under the supervision of Dr. Phillips History of Present Illness Ina is a 37-year-old [id number] male??with history of active IVDU(cocaine,??last use??1 day ago) who presents to [facility] ED??complaining of??bilateral??wrist pain.?Patient noted an abscess to the dorsum of his??left wrist??approximately 3 days ago??which??him and his girlfriend attempted to self drain??with??initial improvement??and subsequent recurrence the following day.?? He additionally noted??pain to the dorsum of his right??wrist??that started this morning, he thinks??this maybe??an additional abscess??forming.?? He reports significant improvement??to his right wrist pain after receiving his morning dose of methadone and??Tylenol.??He denies any surrounding erythema, fluid collection,??or drainage??to his right wrist.?? Denies any fevers, chills, malaise at home.?? He is afebrile in the ED, no leukocytosis, and minimally elevated CRP of 1.3. ??X-rays without any acute fractures or dislocations.?? Orthopedics was consulted for further evaluation. Review of Systems Review of systems: Denies fevers, chills or sweats. ??Denies shortness of breath and chest pain. ??Denies other injuries or painful joints. Physical Exam Vitals & Measurements T:??97.7?F?? HR:??49??(Peripheral)?? RR:??18?? BP:??116/82?? SpO2:??99%?? HT:??179??cm?? WT:??68??kg?? BMI:??21.22?? Patient??appears older than stated age, slightly disheveled. ??Alert and cooperative with examination. ??Mood and affect appropriate. ??Examined on a stretcher in the emergency department. ? HEENT: Within normal limits Cardiac: Per ED provider Pulmonary: Per ED provider Abdomen: Soft, nontender, nondistended. ?? Right upper extremity: Full supple nonpainful range of motion of the shoulder, elbow??with??no tenderness, deformities, erythema, or edema??about the same.?? Track garibay noted diffusely to the forearm.?? There is??mild edema noted about the??hand and digits.?? Patient is endorsing discomfort??over the dorsum of the distal??forearm??just proximally to the radial styloid.?? Minimal tenderness to palpation about this region.?? No appreciable fluctuance, erythema, edema, or wounds noted.?? No significant discomfort noted about the??wrist joint line. ??No discomfort with??axial loading of the wrist.?? Patient tolerates active wrist range of motion with mild discomfort.?? Passive flexion, extension, ulnar deviation, and radial deviation of the wrist without??tenderness.?? Patient has full cardinal digital range of motion.?? Sensate to light touch the median, ulnar, radial nerve distributions.??Palpable radial pulse. ??Brisk cap refill to digits. ?? Low suspicion for septic arthritis of the??wrist at this time. ??Regardless patient was offered??right wrist arthrocentesis??which he is refusing. ??States his pain is controlled and he would like to??avoid unless he has any worsening of symptoms. ?? Left upper extremity: Full supple nonpainful range of motion of the shoulder, elbow, wrist, and digits.?? Multiple track garibay noted about the forearm.?? Superficial abscess noted to the dorsum of the??distal forearm??approximately??3 cm??in size with??visible opening over the center??with minimal bloody and purulent drainage.?? Fluctuance??over this region appreciated.?? Surrounding erythema present. ??Increase in warmth.?? Otherwise full cardinal digital range of motion??with??intact sensation to the median, ulnar, and radial nerve distributions. ??He has palpable radial pulse. ??Compartments otherwise soft. ?? Patient was offered an abscess I&D which he??accepted.?? After Betadine and alcohol prep, a total of 5 cc of 2% lidocaine with epi??were injected just proximal to the area of maximal fluctuance with good anesthetic response. ??Patient tolerated this well. ??An 11 blade was then used to incise over the area of maximal fluctuance. ??Purulent drainage was encountered.?Deanna clamps were used to then to break up??loculations with additional??purulent??drainage??expressed afterwards. ??The wound was then copiously ??irrigated with peroxide, followed by a mix of normal saline and Betadine solution. ??A snap was used to gently place Betadine soaked packing within the wound and a dry sterile dressing and light wrap were then applied. Assessment/Plan Assessment:??Abscess to the dorsum of the left wrist ?? Plan:??Patient's left wrist abscess??was incised and drained??at bedside.?? Betadine soaked packing was??placed??which??may stay in place for 1 day??and may start to be withdrawn approximately 2 inches daily afterwards.?? He was provided with IV antibiotics??and should be transitioned to p.o. antibiotics after discharge.?? No concern for right??wrist septic arthritis at this time.?? Unable to appreciate any??signs of??abscess on physical exam,??CT??with contrast of the right wrist recommended for??further evaluation??of any deep??fluid collections, if any additional findings??of abscesses orthopedics may be??reconsulted for further evaluation. ??He may otherwise weight-bear as tolerated??and should follow-up??in 1 week??for??wound check??with his PCP. ??Recommend ice and elevation.?Questions asked and answered. Problem List/Past Medical History Ongoing Neck abscess IVDU Home Medications Methadone: 110 mg, By Mouth, Daily Allergies NKA Social History Patient is homeless. ??He is right-hand dominant. ??He endorses??frequent use of IV cocaine??to bilateral upper extremities.?? Endorses smoking a pack of cigarettes daily. ??Endorses drinking couplepints of liquor weekly.?? Denies any other illicit drug use. Family History No family history recorded. Radiology X-rays of bilateral??wrists reviewed showing no acute fractures, dislocations,??or radiopaque foreign bodies. Lab Results Labs Last 24 Hours BLOOD COUNT & DIFF ? Event Name?? Event Result?? Date/Time?? WBC 9.3 k/mm3 01/14/23 10:07:00 RBC 3.59 m/mm3??Low 01/14/23 10:07:00 Hgb 12.7 Gm/dL??Low 01/14/23 10:07:00 Hct 36.1 %??Low 01/14/23 10:07:00 MCV 100.6 femtoliters??High 01/14/23 10:07:00 MCH 35.4 pg??High 01/14/23 10:07:00 MCHC 35.2 g/dL 01/14/23 10:07:00 Platelet Count 188 k/mm3 01/14/23 10:07:00 MPV 9.2 femtoliters??Low 01/14/23 10:07:00 Nucleated RBC (Automated) 0 #/100 WBC'S 01/14/23 10:07:00 ? CHEM GENERAL ? Event Name?? Event Result?? Date/Time?? Sodium 138 mmol/L 01/14/23 10:07:00 Chloride 103 mmol/L 01/14/23 10:07:00 Bicarbonate Level 27 mmol/L 01/14/23 10:07:00 Anion Gap 8 01/14/23 10:07:00 Glucose Level 92 mg/dL 01/14/23 10:07:00 BUN 12 mg/dL 01/14/23 10:07:00 Creatinine-Blood 0.8 mg/dL 01/14/23 10:07:00 ? Test Name Test Result Date/Time C-Reactive Protein 1.3 mg/dL 01/14/2023 10:07 EDT Patient Care team information Care Team Personnel Name: Angie COBOS, Alissa Freeman Position: [facility] Physician - Primary Care Member Role: PCP Address: Address: [address] [place] [address] Name: Albert Phillips MD Position: [facility] ED Medicine MD Member Role: Admitting Physician Address: Address: [address] [place] [address] Name: Dania Escoto RN Position: [facility] ED RN W/OE and Tasks Member Role: Patient Care Provider Name: Flaquita Pulido Position: [facility] ED [facility] Name: David Joe Position: [facility] Associate Professional Member Role: ED Physician Hoof Trimmer Address: Address: [address] [place] [address] Care Team Related Persons Name: CRISTIN BHATIA Address: home [address] [place] [id number] Name: ALANA BHATIA Address: [address] [address]
--- OUTSIDE RECORDS SUMMARY | 2023-03-29 20:03 | XMS_ITS | Continuity of Care Document ---
Author Name Unknown Organization [facility] ter Address [address] [place] [id number]- Care Team Providers Care Material Planning Analyst Name Role Phone Angie COBOS, Alissa Lydia Primary Care Physician [phone] Encounter [facility] Date(s): 02/10/23 - 02/14/[address] [address]- Encounter Diagnosis IVDU (intravenous drug user)(Final) - 02/10/23 Discharge Disposition: A-D/C Home Attending Physician: Corby COBOS, Edwin Admitting Physician: Karsten COBOS, Glenda Kemp Referring Physician: Not on Staff, Referring MD Allergies, Adverse Reactions, Alerts No Known Allergies Immunizations Given and Recorded Vaccine Date Status Refusal Reason tetanus/diphtheria/pertussis, acel(Tdap) 04/25/22 Given Meningococcal Conjugate Vaccine 12/27/12 Recorded influenza virus vaccine, inactivated 04/22/11 Neri rded hepatitis B adult vaccine 12/17/10 Recorded Medications Bactrim DS 800 mg-160 mg oral tablet 1 tablet, By Mouth, 2 times a day, for 10 days, # 20 tablet, 0 Refills, Acute 02/24/23 10:51:00 EDT, 02/14/23 10:51:00 EDT, Tablet, [facility], Partial fill upon patient request if the prescription is for a schedule II opioid drug., 1 ta... Start Date: 02/14/23 Stop Date: 02/24/23 Status: Ordered Dilaudid 2 mg oral tablet 1 tablet = 2 mg, By Mouth, Every 12 hours, PRN as needed for pain, for 3 days, # 6 tablet, 0 Refills, Acute 02/17/23 10:51:00 EDT, 02/14/23 10:51:00 EDT, Tablet, [facility], Partialfill upon patient request if the prescription is for a... Start Date: 02/14/23 Stop Date: 02/17/23 Status: Ordered folic acid 1 mg oral tablet 1 mg, By Mouth, Daily, # 30 tablet, Refills 0, Tot. Refills 0, Maintenance, 02/14/23 10:51:00 EDT, Route to Pharmacy Electronically, [facility], Partial fill upon patient request ifthe prescription is for a schedule II opioid drug., 178... Start Date: 02/14/23 Stop Date: 03/16/23 Status: Ordered ibuprofen 400 mg oral tablet 400 mg, 1, tablet, By Mouth, Every 4 hours, PRN, for 7 days, # 30 each, Refills 0, Tot. Refills 0, Acute 02/21/23 10:51:00 EDT, Pain , Moderate, 02/14/23 10:51:00 EDT, Route to Pharmacy Electronically, [facility], Partial fill upon patie... Start Date: 02/14/23 Stop Date: 02/21/23 Status: Ordered methadone 10 mg/5 mL oral solution 41.5 mL = 83 mg, By Mouth, Daily, 0 Refills, Maintenance, 02/14/23 8:56:00 EDT, Solution, Partial fill upon patient request if the prescription is for a schedule II opioid drug. Start Date: 02/14/23 Status: Ordered Methadone Liquid 83 mg, Solution, By Mouth, 02/14/23 9:00:00 EDT Start Date: 02/14/23 Stop Date: 02/14/23 Status: Completed Multivitamin Tablet 1 tablet, By Mouth, Daily, 0 Refills, Maintenance, 02/14/23 8:56:00 EDT, Tablet, Partial fill upon patient request if the prescription is for a schedule II opioid drug. Start Date: 02/14/23 Status: Ordered Problem List Condition Confirmation Course Effective Dates Status Health St atus Informant Cocaine use disorder Confirmed Active IVDU (intravenous drug user) Confirmed Active Alcohol use disorder, moderate, dependence Confirmed Active Opiate dependence Confirmed Active Tobacco use disorder Confirmed Active Hepatitis C Confirmed Active Results Orders for Microbiology Reports Name Date Anaerobic Culture (ANAEROBIC CULTURE) 02/11/23 Wound Deep Culture w/ Gram Smear (DEEP W OUND CULTURE) 02/11/23 Blood Culture 02/10/23 Blood Culture #2 02/10/23 Microbiology Reports TEST:Anaerobic Culture STATUS:Auth (Verified) BODY SITE: SOURCE:SWAB1 COLLECTED DATE/TIME:02/11/23 4:15 PM Anaerobic Culture SPECIMEN DESCRIPTION : SWAB ABSCESS LEFT WRIST SPECIAL REQUESTS : NONE CULTURE : NO ANAEROBES ISOLATED REPORT STATUS : FINAL 02/13/2023 TEST:Deep Wound Culture STATUS:Auth (Verified) BODY SITE: SOURCE:SWAB1 COLLECTED DATE/TIME:02/11/23 4:15 PM Deep Wound Culture SPECIMEN DESCRIPTION : SWAB ABSCESS LEFT WRIST SPECIAL REQUESTS : NONE GRAM STAIN : 2+ RBC'S NO ORGANISMS SEEN CULTURE : 2+ STAPHYLOCOCCUS AUREUS, METHICILLIN RESISTANT. METHICILLIN RESISTANT STAPH AUREUS SHOULD BE CONSIDERED CLINICALLY RESISTANT TO ALL BETA-LACTAMS. This isolate was identified using Maldi-TOF system These AST results were performed on the Vitek 2 ID and AST system REPORT STATUS : FINAL 02/14/2023 ORGANISM 2+ STAPHYLOCOCCUS AUREUS, METHICILLIN RESISTANT. METHICILLIN RESISTANT STAPH AUREUS SHOULD BE CONSIDERED CLINICALLY RESISTANT TO ALL BETA-LACTAMS. This isolate was identified using Maldi-TOF system These AST results were performed on the Vitek 2 ID and AST system METHOD MIN. INHIB. CONC. (MCG/ML) CIPROFLOXACIN SUSCEPTIBLE CLINDAMYCIN SUSCEPTIBLE ERYTHROMYCIN RESISTANT INDUCIBLE CLINDAMYCI NEGATIVE LEVOFLOXACIN SUSCEPTIBLE LINEZOLID SUSCEPTIBLE OXACILLIN RESISTANT RIFAMPIN SUSCEPTIBLE RIFAMPIN RIFAMPIN SHOULD NOT BE USED ALONE FOR ANTIMICROBIAL RIFAMPIN THERAPY. TETRACYCLINE SUSCEPTIBLE TRIMETH/SULFAMETHOX SUSCEPTIBLE VANCOMYCIN SUSCEPTIBLE TEST:Blood Culture STATUS:Unauthenticated BODY SITE: SOURCE:Blood COLLECTED DATE/TIME:02/10/23 9:46 AM Blood Culture SPECIMEN DESCRIPTION : BLOOD RA SPECIAL REQUESTS : NONE CULTURE : NO GROWTH 4 DAYS REPORT STATUS : PRELIMINARY REPORT TEST:Blood Culture, Second Order STATUS:Unauthenticated BODY SITE: SOURCE:Blood COLLECTED DATE/TIME:02/10/23 9:46 AM Blood Culture, Second Order SPECIMEN DESCRIPTION : BLOOD LA SPECIAL REQUESTS : NONE CULTURE : NO GROWTH 4 DAYS REPORT STATUS : PRELIMINARY REPORT Radiology Reports * Exam Date Time Procedure Performing Provider Status 02/10/23 12:[address] Ext Upper W/ Contrast Left Bruna Ireland; Auth (Verified) Notes: (CT Ext Upper W/ Contrast Left) Reason For Exam: Infection RESULT: CT Ext Upper W/ Contrast Left CT Ext Upper W/ Contrast Left Hx of Present Illness: pt injected cocaine a few weeks ago into left hand and since has cellulitis;completed one dose of PO antibiotics but it is not getting better; Reason: Infection; Clinical Question(s): Hand; Order Comment: TECHNIQUE: Helical CT with contrast formatted in 3 planes following uneventful IV contrast administration. Weight-based protocol using automatic tube modulation was used to optimize exposure parameters. CTDIvol Body: 8.63 mGy, DLP Body: 253 mGy*cm. COMPARISONS: No prior exams are available for comparison FINDINGS: Soft Tissues: Abnormal distention of the fourth extensor tendon sheath with corresponding peripheral enhancement from the level of the radiocarpal joint to the carpometacarpal joint (4.2 x 2.5 x 0.9 cm) diffuse increased density within the subcutaneous fat along the dorsum of the hand and wrist in keeping with accompanying cellulitis care Bones and joints: No fracture or dislocation is present. No erosions, productive changes or abnormal calcifications are noted. IMPRESSION: CT findings compatible with enhancing tenosynovitis (presumably septic) of the fourth extensor compartment with surrounding cellulitis Orthopedic consultation is recommended An actionable message ([place]) has been communicated via the [employer] system on 02/10/2023 12:49 PM, Message ID [id number]. WSN: [id number] Ordering Physician: Jovany Butcher Dictated By: Eliel Wadsworth Jr, MD Dictated Date/Time: 02/10/23 12:49 p Reviewed By: Eliel Wadsworth Jr, MD Signed By: Eliel Wadsworth Jr, MD Signed Date/Time: 02/10/23 12:49 pm Transcribed By: TRINIDAD Transcribed Date/Time: 02/10/23 12:40 pm Vital Signs Most recent to oldest [Reference Range]: 1 2 3 Height 178.5 cm (02/14/23 5:53 AM) 178.5 cm (02/13/23 9:29 PM) 178.5 cm (02/13/23 10:47 AM) Weight 68.3 kg (02/11/23 2:26 PM) 68.3 kg (02/10/23 10:59 AM) 68.3 kg (02/10/23 8:46 AM) Oxygen Saturation [94-100 %] 98 % (02/14/23 10:47 AM) 96 % (02/14/23 5:53 AM) 96 % (02/13/23 9:29 PM) Pulse Rate [55-90 bpm] 54 bpm *L* (02/14/23 10:47 AM) 57 bpm (02/14/23 5:53 AM) 83 bpm (02/13/23 9:29 PM) Body Mass Index [18.5-24.99 kg/m2] 21.44 kg/m2 (02/11/23 2:26 PM) 21.44 kg/m2 (02/10/23 8:46 AM) Blood Pressure [90-138/55-84 mm Hg] 114/76mm Hg (02/14/23 10:47 AM) 94/52mm Hg (02/14/23 5:53 AM) 139/88mm Hg *H* (02/13/23 9:29 PM) Respiratory Rate [16-30 br/min] 18 br/min (02/14/23 10:47 AM) 18 br/min (02/14/23 8:56 AM) 16 br/min (02/14/23 5:53 AM) Temperature [96.8-100.4 DegF] 97.8 DegF (02/14/23 5:53 AM) 98.1 DegF (02/13/23 9:29 PM) 97.6 DegF (02/13/23 1:00 PM) Liters per Minute 6 L/min (02/11/23 4:30 PM) Mode of Delivery (Oxygen) Room air (02/14/23 10:47 AM) Room air (02/14/23 5:53 AM) Room air (02/13/23 9:29 PM) Blood pressure sites Arm, right (02/14/23 10:47 AM) Arm, right (02/14/23 5:53 AM) Arm, right (02/13/23 9:29 PM) Temperature Route Oral (02/14/23 5:53 AM) Oral (02/13/23 9:29 PM) Oral (02/13/23 1:00 PM) Dry Weight 68.3 kg (02/10/23 10:59 AM) 68.3 kg (02/10/23 8:46 AM) Weight Obtained Via Patient/family state d (02/10/23 8:46 AM) Dry Weight Obtained Via Patient/family s tated (02/10/23 8:46 AM) Social History Social History Type Response Smoking Status 10 or more cigarette s (1/2 pack or more)/day in last 30 days; Number of years: 26; entered on: 01/18/21 Sex History and physical note * Dolores COBOS, Toribio Mayen: PERFORM Event Display: [facility] Authored Date: [id number] Patient: ??INA UPTON ? Age:??38 Years?Sex:??Male?:??1985?? Chief Complaint/Reason for Consultation Left wrist swelling History of Present Illness 38-year-old male with history of??IV drug abuse with cocaine,??opiate dependence on methadone,??hepatitis C,??alcohol use disorder, and tobacco use disorder??who presents to the emergency department??this morning complaining of recurrent??left wrist swelling, redness, and pain??over the past coupledays.?? The pain is worse with moving his fingers.?? He has not had fever or chills.?? No chest pain or shortness of breath.?? No vomiting, diarrhea, or urinary symptoms. ??He does continue to use IV??cocaine and injects into??both arms.?? He was seen in the emergency department on 01/14/2023??for similar complaints,??and did undergo I&D of an abscess to the dorsum of his left wrist at that time. ??He was prescribed cephalexin and Bactrim??on discharge and finished the antibiotics??about 10 days ago. ?? In the emergency department, the patient is afebrile and hemodynamically stable.?? No respiratory distress or hypoxia.?? He reports pain 4 out of 10 to the left wrist.?? CT is concerning for enhancing tenosynovitis of the fourth extensor compartment with surrounding cellulitis.?? He has receivedVancomycin and Zosyn IV. ??He has been seen by the orthopedic??hand surgery service??and will be scheduled for??washout in the morning. Review of Systems Other than those positives as noted in the HPI above, the remaining comprehensive 14-point review of systems is negative. Objective Measurements?? Height: 178.5 cm (02/10/23) Weight: 68.3 kg (02/10/23) Dry Weight: 68.3 kg (02/10/23) Body Mass Index: 21.44 kg/m2 (02/10/23) ? Vital Signs?? Temperature: 97.9 DegF (02/10/23 14:00:00) Temperature Route: Oral (02/10/23 14:00:00) Pulse Rate:??50 bpm??Low (02/10/23 14:00:00) Respiratory Rate: 16 br/min (02/10/23 14:00:00) Systolic Blood Pressure: 108 mm Hg (02/10/23 14:00:00) Diastolic Blood Pressure: 62 mm Hg (02/10/23 14:00:00) Blood pressure sites: Arm, right (02/10/23 14:00:00) Mean Arterial Pressure: 101 mm Hg (02/10/23 08:46:00) Pulse Pressure: 46 mm Hg (02/10/23 14:00:00) Oxygen Saturation: 98 % (02/10/23 14:00:00) Mode of Delivery (Oxygen): Room air (02/10/23 14:00:00) Early Warning Score: 3 (02/10/23 14:34:57) ? Pain Scores 1 - 10 Pain Scale Score: 4 (15:30) ? Physical Exam General Appearance: Alert, appears stated age, answers questions appropriately HEENT: Normocephalic, atraumatic, PERRL, EOMI, no scleral icterus, no facial droop, moist mucous membranes Neck: Supple, no JVD, no C-Spine tenderness Cardiac: RRR, S1 & S2 present, no m / r / g appreciated Chest: Clear to auscultation bilaterally, no wheezing / ronchi / rales Abdomen: Soft, nontender, no distention, no rebound or guarding, no masses Extremities: No clubbing or cyanosis, 2+ distal pulses??throughout both upper extremities.?? Right upper extremity track??garibay but no open wound, swelling, or erythema.?? Left upper extremity with swelling??over dorsal aspect of wrist and hand??with erythema and warmth to touch, no drainage,??he can actively flex wrist and digits but it is limited due to swelling and pain. ??No sensory deficits Skin: Warm, dry Neuro: ??A & O x 3, no focal motor or sensory deficits Psych: ??Stable mood, appropriate affect Assessment/Plan Assessment:??38-year-old male with history of IV drug abuse with cocaine, opiate dependence on methadone,??hepatitis C,??alcohol use disorder, and tobacco use disorder who presents to the emergency department this morning complaining of recurrent left wrist swelling, redness, and pain over the pastcouple days.??CT is concerning for enhancing tenosynovitis of the fourth extensor compartment with surrounding cellulitis. He has received Vancomycin and Zosyn IV. He has been seen by the orthopedic hand surgery service and will be scheduled for washout in the morning. ?? Cellulitis of left hand (L03.114) Tenosynovitis of left wrist (M65.9):??Currently no fever or criteria for sepsis.??Left wrist and hand is neurovascularly intact??without evidence for compartment syndrome.??He has been seen by the hand??orthopedic surgery service??and will likely need??operating room and intervention tomorrow. -Admit to the medical floor -Neurovascular checks every 4 hours -Continue vancomycin 15 mg/kg per??creatinine clearance -Acetaminophen as needed for??mild??pain -Toradol 15 mg IV every 6 hours as needed??for??moderate pain -Follow-up CBC with differential and blood cultures -N.p.o. after midnight for??hand orthopedic surgery??tomorrow ?? IVDU (intravenous drug user) (F19.90) Cocaine use disorder (F14.10) Opiate dependence (F11.20) Alcohol use disorder, moderate, dependence (F10.20) Tobacco use disorder (F17.200):??The patient does state he is trying to cut down on IV drug use.??He uses cocaine and denies opiates. He states he is prescribed 110 mg methadone daily, which could not be confirmed with the clinic??atthis time of the day. Check EKG to evaluate QT interval.?? Check LFT's. Continue methadone 30 mg daily for now until??dose can be confirmed in the morning. Patient reports 3 pints??of liquor weekly, not every day, and without history of withdrawal.??Monitor CIWA. Patient reports 1 pack of cigarettes daily.??Start nicotine patch 21 mg daily in the hospital. Addiction medicine consultation requested. ?? VTE Prophylaxis:??Low risk of VTE per guidelines.??Encourage ambulation. ?VTE Prophylaxis Assessment:??Risk Level documented as Low Risk ?? Code Status:??FULL. ?Order Code Status:??Code Status Ordered ?? Discharge Planning:??Disposition pending; anticipate 3 to 4 days hospitalization for IV antibiotics. ?? I spent a total of??75 minutes today reviewing the chart / medical records, evaluating the patient,evaluating and interpreting laboratory and imaging data, formulating and discussing the treatment plan, and documenting the encounter. ? Histories Allergies Allergies ?(Active and Proposed Allergies Only) NKA? (Severity: Unknown severity, Onset: Unknown) ? Past Medical History/Problem List Active Problems??(6) Alcohol use disorder, moderate, dependence Cocaine use disorder Hepatitis C IVDU (intravenous drug user) Opiate dependence Tobacco use disorder ? Past Surgical History Cholecystectomy. I&D of neck abscess January 2021. I&D left wrist abscess??January 2023. ? Social History Alcohol Details:??Use: Current. Details:??Frequency:??2-3 times per week. Substance Abuse Details:??Type: Cocaine, Marijuana. Details:??Use: Current. ??Type: Cocaine, Marijuana. ??Other: Heroin was on 01/15/2021. ??Frequency:3-4 times per week. ??IV drug use: Yes. Tobacco Details:??Use: 10 or more cigarettes (1/2 pack or more)/day in last 30 days. ??26 Number of years:. ?? Patient is currently homeless and ambulates independently. ? Family History No family history??contributory to??this admission. ? Medications Home Medications Methadone (methadone 10 mg oral tablet)?110?Milligram?By Mouth?Daily ? Results Recent Labs BLOOD COUNT & DIFF WBC 8.2 k/mm3 ()?? 02/10/2023 09:46 RBC 3.44 m/mm3 (Low)?? 02/10/2023 09:46 Hgb 12.4 Gm/dL (Low)?? 02/10/2023 09:46 Hct 34.3 % (Low)?? 02/10/2023 09:46 MCV 99.7 femtoliters (High)?? 02/10/2023 09:46 MCH 36.0 pg (High)?? 02/10/2023 09:46 MCHC 36.2 g/dL ()?? 02/10/2023 09:46 Platelet Count 174 k/mm3 ()?? 02/10/2023 09:46 RDW-SD 57.1 femtoliters (High)?? 02/10/2023 09:46 MPV 8.8 femtoliters (Low)?? 02/10/2023 09:46 Nucleated RBC (Automated) 0.0 #/100 WBC'S ()?? 02/10/2023 09:46 Abs. NRBC 0.0 k/mm3 ()?? 02/10/2023 09:46 Abs. Neut 6.3 k/mm3 ()?? 02/10/2023 09:46 Abs. Lymph 1.2 k/mm3 ()?? 02/10/2023 09:46 Abs. [place] 0.6 k/mm3 ()?? 02/10/2023 09:46 Abs. Eo 0.1 k/mm3 ()?? 02/10/2023 09:46 Abs. Baso 0.0 k/mm3 ()?? 02/10/2023 09:46 Neut % 76.2 % (High)?? 02/10/2023 09:46 Lymph % 15.1 % ()?? 02/10/2023 09:46 [place] % 6.8 % ()?? 02/10/2023 09:46 Eos % 1.1 % ()?? 02/10/2023 09:46 Baso % 0.4 % ()?? 02/10/2023 09:46 Imm Gran 0.4 % ()?? 02/10/2023 09:46 Abs. Imm Gran 0.0 k/mm3 ()?? 02/10/2023 09:46 ?? CHEM GENERAL Sodium 139 mmol/L ()?? 02/10/2023 09:46 Potassium 4.4 mmol/L ()?? 02/10/2023 09:46 Chloride 103 mmol/L ()?? 02/10/2023 09:46 Bicarbonate Level 30 mmol/L (High)?? 02/10/2023 09:46 Anion Gap 6 ()?? 02/10/2023 09:46 Glucose Level 90 mg/dL ()?? 02/10/2023 09:46 BUN 11 mg/dL ()?? 02/10/2023 09:46 Creatinine-Blood 0.7 mg/dL ()?? 02/10/2023 09:46 Estimated GFR Creatinine 119 ML/MIN/1.73 M2 ()?? 02/10/2023 09:46 Lactate 0.7 mmol/L ()?? 02/10/2023 09:46 ?? HEME OTHER Sed Rate 3 mm/hr ()?? 02/10/2023 09:46 ?? URINE OTHER Est Creatinine Clearance 136.87 mL/min ()?? 02/10/2023 10:35 ?? VIROLOGY COVID-19 by RT-PCR NEGATIVE ()?? 02/10/2023 12:20 ? Imaging(s) ?CT Ext Upper W/ Contrast Left ?? 02/10/2023 12:01??by Eliel Wadsworth Jr, MD ?IMPRESSION: CT findings compatible with enhancing tenosynovitis (presumably septic) of the fourth extensor compartment with surrounding cellulitis. ? EKG study * Event Display: ECG 12-Lead Authored Date: Please click on pdf link to open report * Event Display: ECG 12-Lead Authored Date: Ventricular Rate: 45 BPM Atrial Rate: 45 BPM P-R Interval: 126 ms QRS Duration: 96 ms Q-T Interval: 500 ms QTC Calculation(Bazett): 432 ms P [place]: 63 degrees R [place]: 89 degrees T [place]: 60 degrees Sinus bradycardia Otherwise normal ECG When compared with ECG of 03-AUG-2021 14:33, No significant change was found Confirmed by TORIBIO DEL VALLE MD ([id number]) on 02/11/2023 7:11:17 PM Sandy: [facility] * Eitan Marr RN: PERFORM, SIGN, VERIFY Event Display: [facility] Authored Date: Patient: INA UPTON Age: 38 years Sex: Male : 1985 Associated Diagnoses: None Author: Eitan Marr RN Findings Narrative/Incidental No acute changes. Patient awake, alert & oriented, calm & cooperative. Medications administered per orders. Pain managed. L hand in splint, dressing changed, new clean/dry dressing in place. Patient educated on wound care, able to verbalize and demonstrate understanding. Extra wound supplies at bedside for discharge. Eating and eliminating without difficulty. OOB ambulating with steady gait. Vitals stable on room air. No signs of distress. Patient safety maintained.. * Corby COBOS, Edwin: PERFORM Event Display: [facility] Authored Date: Patient: ??INA UPTON ? Age:??38 Years?Sex:??Male?:??1985?? Ina Dalton Last dose of Methadone is 83mg Daily given today on 02/14/23 at 9:00 AM at [facility]. * Grant Tracy: PERFORM Event Display: [facility] Authored Date: Ortho 38 y/o sp I&D abscess L hand POD 3 pain controlled, denies nt LUE PE: 38 yo nad a+o T-97.8 P-57 RR-16 BP-94/52 L hand splint intact, nv intact A/P: ok to dc from ortho perspective -complete 10 day course Bactrim -NWB LUE -Follow up at [facility] 7-10 day [phone] Consult note * Fabiola Mora: PERFORM Event Display: Consultation Note Authored Date: Patient: ??INA UPTON ? Age:??38 Years?Sex:??Male?:??1985?? Reason for Consultation Addiction Med Consult - IVDU, cocaine use, on methadone Requested by??Dr Bernal History of Present Illness Ina Upton is a 38 yo male with a PMHx of opioid and cocaine use, alcohol use disorder, tobacco use, HCV. He was admitted 02/10 after presenting with ongoing left wrist swelling and redness. Pt did endorse ongoing IV cocaine use, injected into b/l arms. Pt started on IV antibiotics. The hand surgery team has met with the pt, and he will likely undergo a washout in the OR of the area at some point today. QTc this admission 432ms. ?? Met with pt this morning. He reports that he has been working with his clinic to taper off the methadone. His most recent dose being 85mg daily. 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 He says he will be fine with continuing on whatever his most recent dose was here, no need for adjustments as his clinic will continue with this. Pt attends [facility] on [facility] in [place] and says he was last seen at the clinic this Thursday prior to presentation. He does not endorse any regular opioid use for the last few weeks. He has, however, been using IV cocaine on a regular basis, a few times a week. Amounts vary. Pt does report any history of seizures or psychosis 2/2 cocaine use in the past. He is aware of needle exchange services available in the area. Additionally, pt reports that he will consume about 3 pints of liquor through a weeks time lately. He says this help with anxiety. Unfortunately at this time pt is not interested in starting any medsfor ETOH cravings. Pt is already connected with counseling services through [facility]. Not interested in any other specific resource referrals. Pt also is established with a PCP office, and says that he just had a physical done a week or 2 ago. Pt also smokes about 1 PPD of cigarettes, and uses 'one puff' of marijuana a day. Otherwise does not endorse use of any other substances. Review of Systems No acute complaints Physical Exam Vitals & Measurements T:??97.8?F?? TMIN:??97.8?F?? TMAX:??98.5?F?? HR:??63??(Peripheral)?? RR:??16?? BP:??102/54?? SpO2:??98%?? WT:??68.3??kg?? General:??well developed, well nourished,??appears to be stated age.??Left dorsal??hand erythematous??and swollen.??no jaundice.??Breathing is??even and unlabored.??In no acute distress,??no diaphoresis. Mental Status Exam: Appearance:??casual?? Attitude:??cooperative? Eye contact:??normal Motor activity:??calm, no aberrant movements? Mood:??euthymic? Affect:??congruent? Speech:??fluent, unimpaired? Judgment:??appears intact? Insight:??appears intact? Thought process:??linear? Reliability:??likely reliable source? Delusions or hallucinations:??denies Fund of knowledge:??intact Assessment/Plan IVDU (intravenous drug user) (F19.90) Cocaine use disorder (F14.10):??. 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 Patient should use clean needles if these are able to be obtained. [facility] in [place] is able to provide these to the community.?? Patient also needs to be careful about cleaning the skin prior to injection, and needs to clean thearea well with alcohol. Non-sterile injection techniques can lead to soft tissue infections, endocarditis, spinal abscesses, HIV, HCV. Pt receptive.? Patient counseled on risks of cocaine use, including seizures, psychosis, vascular complications such as heart attack and stroke. Also discussed risk of contamination in the cocaine supply with othersubstances such as fentanyl or heroin, which can lead to overdose. Pt was not aware of this possibility. For harm reduction, did make pt aware that there are fentanyl testing strips available. At this time, there are no viable medication options specific to cocaine use disorder. Other options may include motivational interviewing, cognitive behavioral therapy, as well as contingency management plans. Pt??receptive.? Pt is already connected with counseling services and did not request for any additional referrals for other services at this time. ?? Opiate dependence (F11.20):??. Pt attends [facility] on [facility] in [place],??working on tapering down. Pt already received methadone 30mg this morning - once methadone dose is verified, can give pt a one time dose for whatever amount would be left, and then resume regular dosing starting tomorrow. Patient will need a last dose letter on discharge. This is typically a free text note printed with date of discharge and methadone dose received here. ?? Alcohol use disorder, moderate, dependence (F10.20):??. Counseled pt that even if he is not drinking on a daily basis, 3 pints of liquor a week??is certainly putting him into the high risk category of ETOH consumption. Patient was counseled on consequences of senior living excessive ETOH consumption such as damage to thecardiovascular system, memory loss/dementia, falls/injury, cirrhosis, higher risk??for HCC,??liver failure, . ?? At this time, pt is not interested in pursuing any medication to help with ETOH cravings. Discussedwith pt that if he changes his mind in the future, he??should reach out to [facility] or his PCP office for further guidance.? Tobacco use disorder (F17.200):??. 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 Pt expresses??that he would like to quit, and that he doesn't really like smoking much. He currently has a nicotine patch ordered and is going to consider if he would like to be prescribed the patch on d/c. He will notify his medical team.? Marijuana use, continuous (F12.90):??. For harm reduction, advised patient to purchase from a dispensary to eliminate risk of potential for lacing/contamination.??Also discussed that use of edibles is preferable??to smoking,??as this prevents damage to the lungs. Discussed possibility that heavy use can prevent sobriety from other substances. Pt somewhat??receptive.? Recommendations communicated via cortext to Dr Bailey Addiction??Service will sign off at this time. Thank you for allowing us to participate in the careof this patient. Please contact me with any questions or concerns. ?? Problem List/Past Medical History Ongoing Alcohol use disorder, moderate, dependence Cocaine use disorder Hepatitis C IVDU (intravenous drug user) Opiate dependence Tobacco use disorder Medications Inpatient Acetaminophen Tablet, 650 mg, By Mouth, Every 4 hours, PRN Melatonin Tablet, 3 mg, By Mouth, Daily at bedtime, PRN Methadone Tablet, 30 mg, By Mouth, Daily NaCL 0.9% Flush, 3 mL, IV Push, Every 8 hours NaCL 0.9% Flush, 3 mL, IV Push, Every 8 hours, PRN nalOXONE Inj, 0.2 mg= 0.5 mL, IV Push, Every 5 minutes, PRN Nicotine Topical, 21 mg, Topically, Daily Remove Patch, 1 each, Topically, Daily Toradol Inj, 15 mg= 0.5 mL, IV Push Slowly, Every 6 hours, PRN Vancomycin IVPB, 1000 mg= 200 mL, 15 mg/kg, IVPB, Every 12 hours Home methadone 10 mg oral tablet, 110 mg, By Mouth, Daily Allergies NKA Social History Alcohol Use: Current. Substance Abuse Use: Past. Tobacco Use: 10 or more cigarettes (1/2 pack or more)/day in last 30 days. 26 Number of years:. Immunizations Vaccine Date Status tetanus/diphtheria/pertussis, acel(Tdap) 04/25/2022 Given Meningococcal Conjugate Vaccine 12/27/2012 Recorded influenza virus vaccine, inactivated 04/22/2011 Recorded hepatitis B adult vaccine 12/17/2010 Recorded * Yani MCDERMOTT, Lan: MODIFY, PERFORM, MODIFY Event Display: Consultation Note Authored Date: [id number] Patient: ??INA UPTON ? Age:??38 Years?Sex:??Male?:??1985?? Chief Complaint/Reason for Consult Left hand swelling History of Present Illness Orthopedic consultation requested by Azeb Cade NP under the supervision of Dr. Butchre. ?? Ina is a 38-year-old male with a past medical history of??IVDU??with cocaine??currently on methadone??who presents with left hand swelling.?? The patient stated that he??came in on??January 14??with bilateral wrist pain??and bilateral??hand swelling. An abscess I&D was performed on the??lefthand.??He stated that he??did not follow-up with the??hand surgeon??upon discharge??since the hand swelling??proceeded to get better over time.?? He stated that??he ran out of??antibiotic medication??a few days ago??and thus when he started to notice??the left hand??beginning to??become erythematous and swollen again. CT of the left upper arm was performed which showed fluid within the fourth exte nsor compartment with surrounding cellulitis. ??Orthopedics was consulted for further treatment recommendations. Review of Systems Denies fevers, chills or sweats.?? Denies shortness of breath and chest pain. Denies other injuries or painful joints. Physical Exam Vitals & Measurements T:??98.2?F?? HR:??52??(Peripheral)?? RR:??18?? BP:??131/86?? SpO2:??100%?? HT:??178.5??cm?? WT:??68.3??kg?? BMI:??21.44?? Patient is well-developed and in no acute distress. ??Alert and cooperative with examination. Mood and affect appropriate. ??Alert and oriented x4??. Examined on a stretcher in the emergency department.? HEENT: Atraumatic and normocephalic Cardiac: Per ED provider Pulmonary: Per ED provider Abdomen: Soft, nontender, nondistended. ?? Right upper extremity: Full, supple, nonpainful range of motion of shoulder, elbow, wrist and digits. ??No tenderness to palpation. ??Grossly neurovascularly intact radial, median, ulnar nerve distributions. ?? Left upper extremity: Full, supple, nonpainful range of motion of shoulder and elbow. No tendernessto palpation about the same. ??There is obvious??swelling about dorsal aspect of??the??left wrist and hand. ??The dorsal aspect of the??hand is erythematous??and warm to touch.?? The patient is able t o??actively??flex??his wrist and??digits??but is limited??due to??the swelling and pain. Patient also has pain??with passive??flexion??of the??ring and long fingers. Patient is tender to palpation about the dorsal aspect of the wrist,??ring digit??and long digit.??Grossly neurovascularly intact radial, median, ulnar nerve distributions. Assessment/Plan Impression: Left hand swelling - differential at this time: septic arthritis vs crystal arthropathy ?? Plan: CT showing fluid within the fourth extensor compartment. Will??be admitted with medicine. ??With Dr. Ramos following from hand surgery.?We will??will recommend the patient be placed??on IV antibiotics and be n.p.o. after midnight for??possible surgical intervention tomorrow. ??Discussed with patient that he may need several days of??antibiotics??upon admission. WBAT on the LUE. Discussedwith patient who agrees with the plan.??All questions asked and answered. ?? Case discussed with Dr. Ramos Problem List/Past Medical History Ongoing Neck abscess IVDU Procedure/Surgical History None Home Medications Methadone: 110 mg, By Mouth, Daily Allergies NKDA Social History Patient is homeless. ?? He is right-hand dominant. ?? He endorses??frequent use of IV cocaine??to bilateral upper extremities.?? Endorses smoking a pack of cigarettes daily. ?? Endorses drinking couple pints of liquor weekly.?? Denies any other illicit drug use. Family History Denies history of adverse reaction to anesthesia, bleeding dyscrasias, DVT. Radiology CT of the left upper extremity with contrast was reviewed by myself which shows fluid within the fourth extensor compartment and surrounding cellulitis. No acute fractures and dislocations can be noted. Lab Results Labs Last 24 Hours BLOOD COUNT & DIFF ? Event Name?? Event Result?? Date/Time?? WBC 8.2 k/mm3 02/10/23 09:46:00 RBC 3.44 m/mm3??Low 02/10/23 09:46:00 Hgb 12.4 Gm/dL??Low 02/10/23 09:46:00 Hct 34.3 %??Low 02/10/23 09:46:00 MCV 99.7 femtoliters??High 02/10/23 09:46:00 MCH 36 pg??High 02/10/23 09:46:00 MCHC 36.2 g/dL 02/10/23 09:46:00 Platelet Count 174 k/mm3 02/10/23 09:46:00 MPV 8.8 femtoliters??Low 02/10/23 09:46:00 Nucleated RBC (Automated) 0 #/100 WBC'S 02/10/23 09:46:00 ? CHEM GENERAL ? Event Name?? Event Result?? Date/Time?? Sodium 139 mmol/L 02/10/23 09:46:00 Chloride 103 mmol/L 02/10/23 09:46:00 Bicarbonate Level 30 mmol/L??High 02/10/23 09:46:00 Anion Gap 6 02/10/23 09:46:00 Glucose Level 90 mg/dL 02/10/23 09:46:00 BUN 11 mg/dL 02/10/23 09:46:00 Creatinine-Blood 0.7 mg/dL 02/10/23 09:46:00 ? Note * Eitan Marr RN: PERFORM Event Display: Discharge/Transfer Note Hospital Authored Date: [id number] Nursing Discharge Note Entered On: 02/14/2023 11:52 EDT Performed On: 02/14/2023 11:52 EDT by Eitan Marr RN Nursing Discharge Note 2 Discharge Time : 02/14/2023 11:52 EDT Discharge Level of Care at Discharge : Home/Correction/Foster Care Patient Left Unit Via : Ambulatory Patient Accompanied Off Unit with : Other: staff member DC Instructions Provided & Signed by Pt : Yes Patient Understands D/C Instructions : Yes Patient Instructions Discharge Signed : Yes Did Pt have Specialty Bed or Wound Vac : No Tejinder ASHBY, Eitan - 02/14/2023 11:52 EDT * Corby COBOS, Edwin: PERFORM Event Display: Discharge/Transfer Note Hospital Authored Date: [id number] Patient: ??INA UPTON ? Age:??38 Years?Sex:??Male?:??1985?? Patient Information Discharge Location: 4 Primary Care Physician: Angie COBOS, Alissa Freeman Admit Date/Time: 02/10/23 13:42 Discharge Disposition Discharge Disposition: Home: No Services Discharge Diagnosis Cellulitis of left hand (L03.114) Tenosynovitis of left wrist (M65.9) IVDU (intravenous drug user) (F19.90) Cocaine use disorder (F14.10) Opiate dependence (F11.20) Alcohol use disorder, moderate, dependence (F10.20) Tobacco use disorder (F17.200) Marijuana use, continuous (F12.90) ?? _ Discharge Medications Folic Acid (folic acid 1 mg oral tablet)?1?Milligram?By Mouth?Daily?for 30?Days Hydromorphone (Dilaudid 2 mg oral tablet)?1?tab(s)?2?Milligram?By Mouth?Every 12 hours?as needed?as needed for pain?for 3?Days Ibuprofen (ibuprofen 400 mg oral tablet)?400?Milligram?1?tablet?By Mouth?Every 4 hours?as needed?for 7?Days?Pain , Moderate Methadone (methadone 10 mg/5 mL oral solution)?41.5?Milliliter?83?Milligram?By Mouth?Daily Multivitamin (Multivitamin Tablet)?1?tab(s)?By Mouth?Daily Sulfamethoxazole/Trimethoprim (Bactrim DS 800 mg-160 mg oral tablet)?1?tab(s)?By Mouth?2 times a day?for 10?Days ? Quality Measures Tobacco Use Treatment:? Inpatient Medications Medications (18) Active SCHEDULED: (9) Folic Acid 1 mg Tablet (Folic Acid Tablet) ??1 mg, By Mouth, Daily Methadone 30mg/15mL UD Solution (Methadone Liquid) ??83 mg 41.5 mL, By Mouth, Daily Multivitamin Tablet ??1 tablet, By Mouth, Daily NaCl 0.9% Flush 3ml (NaCL 0.9% Flush) ??3 mL, IV Push, Every 8 hours Nicotine 21 mg / 24 hour Patch (Nicotine Topical) ??21 mg, Topically, Daily Pyridoxine 50 mg Tablet (Pyridoxine Tablet) ??50 mg, By Mouth, Daily Remove Patch (Remove ??Patch) ??1 each, Topically, Daily Sulfamethoxazole 800 mg/Trimethoprim 160 mg Tablet (Bactrim DS Tablet) ??1 tablet, By Mouth, 2 times a day Thiamine 100 mg Tablet (Thiamine Tablet) ??100 mg, By Mouth, 2 times a day CONTINUOUS: (0) PRN: (9) Acetaminophen 325 mg Tablet (Acetaminophen Tablet) ??650 mg, By Mouth, Every 4 hours HYDROmorphone 2 mg/mL Inj Syringe (Dilaudid Inj) ??2 mg 1 mL, IV Push Slowly, Every 4 hours Ketorolac 30 mg/mL Inj (Toradol Inj) ??15 mg 0.5 mL, IV Push Slowly, Every 6 hours Lorazepam 1 mg Tablet (Ativan Tablet) ??1 mg, By Mouth, Every 2 hours Lorazepam 2 mg Tablet (Ativan Tablet) ??2 mg, By Mouth, Every 2 hours Lorazepam 2 mg Tablet (LORazepam Tablet) ??2 mg, By Mouth, Every hour Melatonin 3 mg Tablet (Melatonin Tablet) ??3 mg, By Mouth, Daily at bedtime NaCl 0.9% Flush 3ml (NaCL 0.9% Flush) ??3 mL, IV Push, Every 8 hours nalOXONE ??400mcg/mL Inj (nalOXONE Inj) ??0.2 mg 0.5 mL, IV Push, Every 5 minutes ? 72 Hour Antibiotic History Active Antibiotics Calendar Day Last Administered First Administered Sulfamethoxazole/Trimethoprim??1 tablet, By Mouth, 2 times a day ?1 02/14/2023 09:26 02/14/2023 09:26 ? Stopped Antibiotics Stop Date/Time Last Administered First Administered Vancomycin??1,000 mg, 200 mL, 200 mL/hr, IVPB, Every 12 hours 02/14/2023 08:58 02/14/2023 05:28 02/11/2023 00:31 ? Vaccinations and Immunoprophylaxis hepatitis B adult vaccine: 0 Unknown (12/17/10 08:00:00) influenza virus vaccine, inactivated: 0.5 Unknown (04/22/11 08:00:00) Meningococcal Conjugate Vaccine: 0.5 Unknown (12/27/12 08:00:00) tetanus/diphtheria/pertussis, acel(Tdap): 0.5 mL (04/25/22 08:42:00) ? Allergies Allergies ?(Active and Proposed Allergies Only) NKA? (Severity: Unknown severity, Onset: Unknown) ? Hospital Course Ina Upton is a 38 yo male with a PMHx of opioid and cocaine use, alcohol use disorder, tobacco use, HCV. He was admitted 02/10 after presenting with ongoing left wrist swelling and redness. Pt did endorse ongoing IV cocaine use, injected into b/l arms. . Afebrile/No leukocytosis. CT concerning for fourth compartment tenosynovitis in the setting of IVDU, Started on vancomycin and orthopedic surgery was consulted, patient is now status post debridement. ?Tenosynovitis of left wrist (M65.9):??CT concerning for fourth compartment tenosynovitis in the setting of IVDU, continue vancomycin.?Seen by addiction medicine while inpatient and patient threatened to leave AMA??due to??ineffective pain control for which IV Dilaudid was started??by previous p rovider.??Transition to p.o.??Dilaudid for??2 to 3 days??at discharge.??Was seen by orthopedics??this morning,??cleared for DC??and??10 days of??antibiotic with p.o. Bactrim DS??and follow-up??with [facility]. Blood cultures negative, vitals normal today. ?? Dressing??instructions include dry??dressing, nonweightbearing, left hand splint. Patient refused VNA services for dressing changes. ? IVDU (intravenous drug user) (F19.90):??Seen by addiction continue supportive therapy will need last dose letter on discharge ? Cocaine use disorder (F14.10):??On methadone maintenance therapy, methadone dose confirmed at 83 mg ?Alcohol use disorder, moderate, dependence (F10.20): No signs of alcohol withdrawal, ?? Objective Assessment and Plan ? Measurements?? Height: 178.5 cm (02/14/23) Weight: 68.3 kg (02/11/23) Dry Weight: 68.3 kg (02/10/23) Body Mass Index: 21.44 kg/m2 (02/11/23) ? Vital Signs?? Temperature: 97.8 DegF (02/14/23 05:53:00) Temperature Route: Oral (02/14/23 05:53:00) Pulse Rate:??54 bpm??Low (02/14/23 10:47:00) Respiratory Rate: 18 br/min (02/14/23 10:47:00) Systolic Blood Pressure: 114 mm Hg (02/14/23 10:47:00) Diastolic Blood Pressure: 76 mm Hg (02/14/23 10:47:00) Blood pressure sites: Arm, right (02/14/23 10:47:00) Mean Arterial Pressure: 66 mm Hg (02/14/23 05:53:00) Pulse Pressure: 42 mm Hg (02/14/23 05:53:00) Oxygen Saturation: 98 % (02/14/23 10:47:00) Mode of Delivery (Oxygen): Room air (02/14/23 10:47:00) Early Warning Score: 2 (02/14/23 10:55:10) ? Intake/Output? 02/10 13:42 02/14 07:00 08 07:00 02/12 07:00 02/11 07:00 ?? 02/14 10:59 02/14 10:59 02/14 06:59 02/13 06:59 02/12 06:59 Intake ? 2440 ?0 ? 1000.0 ?400 ?400 Output ?0 ?0 ?0 ?0 ?0 Net Total ? 2440 ?0 ? 1000.0 ?400 ?400 ? Urine Count ?3 ?0 ?3 ?0 ?0 ? [place] Coma Scale [place] Coma Score: 15 (02/13/23 17:00:00) Motor Response-Adult: Obeys commands (02/13/23 17:00:00) Response Eye Opening: Spontaneously (02/13/23 17:00:00) Verbal Response-Adult: Oriented and converses (02/13/23 17:00:00) ?? . Physical Exam Surgical Procedures Incision and Drainage Hand 02/11/2023 16:07 Pending Results Add On Lab Order ordered on 02/10/2023 Blood Culture ordered on 02/10/2023 Blood Culture #2 ordered on 02/10/2023 Follow-Up Appointments Added Follow Up ?Time Frame ?Comments Angie COBOS, Alissa Freeman Patient Instructions You came to the hospital with complaints of??forearm??redness, swelling and pain. ??After initial imaging with CAT scan??which showed??infection of your??tissues??in your forearm,??tendons.?? You??were started on??IV antibiotics and orthopedics were consulted.?? You had surgery and??incision and drainage of your abscess/wound. ??Per recommendations??we are discharging you with 10 days of??pill antibiotics, painkillers.?? Please follow-up with Orthopedics team,??contact below ?? - ?? F/U with [facility], call [phone] for outpatient??appt in 7-10 days -Continue Bactrim DS??for 10 days??twice daily -Continue other home medications -Follow-up with??PCP??in a week -If you have any new symptoms of fever/swelling/redness??present to the ER??immediately - Post Discharge Care Discharge ?02/14/23 10:59:00 EDT Home Health Face to Face ^HomeHealthFTF Results Discharge Labs BLOOD COUNT & DIFF WBC 7.0 k/mm3 ()?? 02/11/2023 02:33 RBC 3.27 m/mm3 (Low)?? 02/11/2023 02:33 Hgb 11.5 Gm/dL (Low)?? 02/11/2023 02:33 Hct 32.6 % (Low)?? 02/11/2023 02:33 MCV 99.7 femtoliters (High)?? 02/11/2023 02:33 MCH 35.2 pg (High)?? 02/11/2023 02:33 MCHC 35.3 g/dL ()?? 02/11/2023 02:33 Platelet Count 159 k/mm3 ()?? 02/11/2023 02:33 RDW-SD 57.6 femtoliters (High)?? 02/11/2023 02:33 MPV 9.1 femtoliters (Low)?? 02/11/2023 02:33 Nucleated RBC (Automated) 0.0 #/100 WBC'S ()?? 02/11/2023 02:33 Abs. NRBC 0.0 k/mm3 ()?? 02/11/2023 02:33 Abs. Neut 4.8 k/mm3 ()?? 02/11/2023 02:33 Abs. Lymph 1.6 k/mm3 ()?? 02/11/2023 02:33 Abs. [place] 0.5 k/mm3 ()?? 02/11/2023 02:33 Abs. Eo 0.1 k/mm3 ()?? 02/11/2023 02:33 Abs. Baso 0.0 k/mm3 ()?? 02/11/2023 02:33 Neut % 67.7 % ()?? 02/11/2023 02:33 Lymph % 22.0 % ()?? 02/11/2023 02:33 [place] % 7.3 % ()?? 02/11/2023 02:33 Eos % 2.0 % ()?? 02/11/2023 02:33 Baso % 0.6 % ()?? 02/11/2023 02:33 Imm Gran 0.4 % ()?? 02/11/2023 02:33 Abs. Imm Gran 0.0 k/mm3 ()?? 02/11/2023 02:33 ?? CHEM GENERAL Sodium 139 mmol/L ()?? 02/11/2023 02:33 Potassium 4.4 mmol/L ()?? 02/11/2023 02:33 Chloride 105 mmol/L ()?? 02/11/2023 02:33 Bicarbonate Level 24 mmol/L ()?? 02/11/2023 02:33 Anion Gap 10 ()?? 02/11/2023 02:33 Glucose Level 94 mg/dL ()?? 02/11/2023 02:33 BUN 13 mg/dL ()?? 02/11/2023 02:33 Creatinine-Blood 0.8 mg/dL ()?? 02/14/2023 00:32 Estimated GFR Creatinine 114 ML/MIN/1.73 M2 ()?? 02/14/2023 00:32 Calcium 8.9 mg/dL ()?? 02/11/2023 02:33 Phosphorus 3.7 mg/dL ()?? 02/11/2023 02:33 Magnesium 2.3 mg/dL ()?? 02/11/2023 02:33 Protein, Total 5.9 Gm/dL (Low)?? 02/11/2023 02:33 Albumin 3.9 Gm/dL ()?? 02/11/2023 02:33 AG Ratio 2.0 ()?? 02/11/2023 02:33 Alkaline Phosphatase 46 units/L ()?? 02/11/2023 02:33 AST (SGOT) 15 units/L ()?? 02/11/2023 02:33 ALT (SGPT) 10 units/L ()?? 02/11/2023 02:33 Bilirubin, Total 0.9 mg/dL ()?? 02/11/2023 02:33 Lactate 0.7 mmol/L ()?? 02/10/2023 09:46 C-Reactive Protein 3.4 mg/dL (High)?? 02/10/2023 09:46 ? HEME OTHER Sed Rate 3 mm/hr ()?? 02/10/2023 09:46 ? URINE OTHER Est Creatinine Clearance 119.76 mL/min ()?? 02/11/2023 03:44 ? VIROLOGY COVID-19 by RT-PCR NEGATIVE ()?? 02/10/2023 12:20 ? 40??minutes spent on discharge * Eitan Marr RN: PERFORM Event Display: Patient Education/Instruction Authored Date: [id number] Inpatient Adult Discharge Instructions [address] [id number] Name: INA UPTON : 1985 Visit: 02/10/2023 13:42:00 Current Date: 02/14/2023 11:19 Account: [id number] Inpatient Adult Discharge Instructions We would like to thank you for allowing us to assist you with your healthcare needs. The following includes patient education materials and information regarding your injury/illness. Our entire staffstrives to provide an excellent experience for our patients and their families. PLEASE ENSURE YOU FOLLOW-UP PER THE INSTRUCTIONS BELOW! ?? YOUR OPINION IS IMPORTANT TO US! Please complete the survey you may receive by mail or email. Your feedback will be used to make improvements to the healthcare experiences of our patients and their families. Surveys are administered by [employer] ?? If further treatment with your primary care physician or another doctor is recommended, it is important for you to keep the appointment. Call your primary care physician or return to the Emergency Department immediately if your condition worsens, fails to improve, or new symptoms develop. If you need to find a doctor, you can call [facility] [employer] for a referral at [phone] or toll free at [phone]) or log in to [email or web address] ?? You can view and manage your care through the patient portal or by using a health care rena of your choosing. [employer] is a website that allows you to securely view your medical information including your hospital discharge summary, office visit summaries, medications and follow-up visits. You can also request appointments, renew medications, and request access to your medical information using a health care rena of your choosing, or just ask a question. You can enroll at [email or web address] or register during your next office visit. You have been discharged from [facility], Patient Care Unit: S64. If you have any questions regarding these instructions after you leave, please call us and we will be happy to assist you. [facility] Your Care Team Attending Physician Edwin Tavarez MD Consulting Providers Richard COBOS, Sean Orona MD, Z[employer]ka Discharging Providers Edwin Tavarez MD Reason for Admission Left wrist swelling Your Diagnosis IVDU (intravenous drug user) Cocaine use disorder Cellulitis of left hand Tenosynovitis of left wrist Opiate dependence Alcohol use disorder, moderate, dependence Tobacco use disorder Marijuana use, continuous Tests Performed Below is a partial list of the tests performed during your hospitalization. You may have had other tests and procedures not included in this list. Please discuss all test results with your provider. BUN C-REACTIVE PROTEIN CBC w/ Differential Comprehensive Metabolic Panel COVID-19 (Novel Coronavirus), Rapid PCR Creatinine Electrolytes Glucose Level Lactate Level Magnesium Level Phosphorus Level SEDIMENTATION RATE,AUTOMATED CT Ext Upper W/ Contrast Left Primary Care Provider Alissa Adams MD Advance Directive Health Care Proxy on File Yes - Health Care Proxy Discharge Vitals Temperature: 97.8 DegF Height: 178.5 cm Pulse Rate:??54 bpm??Low Weight: 68.3 kg Respiratory Rate: 18 br/min Body Mass Index: 21.44 kg/m2 Systolic Blood Pressure: 114 mm Hg Body surface area: 1.84 Diastolic Blood Pressure: 76 mm Hg ?? Oxygen Saturation: 98 % ?? Studies Pending All tests and labs ordered during this hospital stay have been completed unless listed below. Please discuss all pending results with your provider listed above in these instructions. ?? Add On Lab Order Blood Culture Blood Culture #2 What to do next Instructions From Your Doctor You came to the hospital with complaints of??forearm??redness, swelling and pain. ??After initial imaging with CAT scan??which showed??infection of your??tissues??in your forearm,??tendons.?? You??were started on??IV antibiotics and orthopedics were consulted.?? You had surgery and??incision and drainage of your abscess/wound. ??Per recommendations??we are discharging you with 10 days of??pill antibiotics, painkillers.?? Please follow-up with Orthopedics team,??contact below ?? - ?? F/U with [facility], call for outpatient??appt in 7-10 days -Continue Bactrim DS??for 10 days??twice daily -Continue other home medications -Follow-up with??PCP??in a week -If you have any new symptoms of fever/swelling/redness??present to the ER??immediately - Discharge Orders You Need to Schedule the Following Appointments Follow Up with??Alissa Adams MD Where: [address] [place] [address]- Discharge Medications INA UPTON :1985 Visit Date:02/10/2023 Medications: Please continue your medications until treatment is completed or stopped by your provider. Medications not listed below should be discontinued. Discuss any questions related to medications with your provider. What How Much When Instructions Next Dose New Folic Acid (folic acid 1 mg oral tablet) 1 Milligram Oral Daily Duration: 30 Days [facility] [facility] Tomorrow 02/15 ?? Given this morning 02/14 New Hydromorphone (Dilaudid 2 mg oral tablet) 1 tab(s) Oral Every 12 hours as needed for as needed for pain Duration: 3 Days Pickup at [facility] As needed ?? Not given today 02/14 New Ibuprofen (ibuprofen 400 mg oral tablet) 1 tab(s) Oral Every 4 hours as needed for Pain , Moderate Duration: 7 Days Pickup at [facility] As needed ?? Not given today 02/14 New Multivitamin (Multivitamin Tablet) 1 tab(s) Oral Daily Tomorrow 02/15 ?? Given this morning 02/14 New Sulfamethoxazole/ Trimethoprim (Bactrim DS 800 mg-160 mg oral tablet) 1 tab(s) Oral Twice a day Duration: 10 Days Pickup at [facility] Tonight 02/14 ?? Given one dose this morning Changed Methadone (methadone 10 mg/ 5 mL oral solution) 41.5 Milliliter Oral Daily Tomorrow 02/15 ?? Given this morning 02/14 Pharmacy Information [facility]: [address], [place] [id number] [phone] Test Results Below is a partial list of the most recent Laboratory test results done prior to this discharge. You may have had other tests and procedures not included in this list. Please discuss all test resultswith your provider. Est Creatinine Clearance - 119.76 mL/min (02/11/2023) BUN (02/10/2023) ???BUN - 11 mg/dL C-REACTIVE PROTEIN (02/10/2023) ???C-Reactive Protein - 3.4 mg/dL CBC w/ Differential (02/11/2023) ???WBC - 7.0 k/mm3???RBC - 3.27 m/mm3???Hgb - 11.5 Gm/dL???Hct - 32.6 %???MCV - 99.7 femtoliters???MCH - 35.2 pg???MCHC - 35.3 g/dL???Platelet Count - 159 k/mm3???RDW-SD - 57.6 femtoliters???MPV - 9.1 femtoliters???Nucleated RBC (Automated) - 0.0 #/100 WBC'S???Abs. NRBC - 0.0 k/mm3???Abs. Neut - 4.8 k/mm3???Abs. Lymph - 1.6 k/mm3???Abs. [place] - 0.5 k/mm3???Abs. Eo - 0.1 k/mm3???Abs. Baso - 0.0 k/mm3???Neut % - 67.7 %???Lymph % - 22.0 %???[place] % - 7.3 %???Eos % - 2.0 %???Baso % - 0.6 %???Imm Gran- 0.4 %???Abs. Imm Gran - 0.0 k/mm3 Comprehensive Metabolic Panel (02/11/2023) ???Sodium - 139 mmol/L???Potassium - 4.4 mmol/L???Chloride - 105 mmol/L???Bicarbonate Level - 24 mmol/L???Anion Gap - 10???Glucose Level - 94 mg/dL???BUN - 13 mg/dL???Creatinine-Blood - 0.8 mg/dL???Estimated GFR Creatinine - 115 ML/MIN/1.73 M2???Calcium - 8.9 mg/dL???Protein, Total - 5.9 Gm/dL???Alb umin - 3.9 Gm/dL???AG Ratio - 2.0???Alkaline Phosphatase - 46 units/L???AST (SGOT) - 15 units/L???ALT (SGPT) - 10 units/L???Bilirubin, Total - 0.9 mg/dL COVID-19 (Novel Coronavirus), Rapid PCR (02/10/2023) ???COVID-19 by RT-PCR - NEGATIVE Creatinine (02/14/2023) ???Creatinine-Blood - 0.8 mg/dL???Estimated GFR Creatinine - 114 ML/MIN/1.73 M2 Electrolytes (02/10/2023) ???Sodium - 139 mmol/L???Potassium - 4.4 mmol/L???Chloride - 103 mmol/L???Bicarbonate Level - 30 mmol/L???Anion Gap - 6 Glucose Level (02/10/2023) ???Glucose Level - 90 mg/dL Lactate Level (02/10/2023) ???Lactate - 0.7 mmol/L Magnesium Level (02/11/2023) ???Magnesium - 2.3 mg/dL Phosphorus Level (02/11/2023) ???Phosphorus - 3.7 mg/dL SEDIMENTATION RATE,AUTOMATED (02/10/2023) ???Sed Rate - 3 mm/hr Allergies (NKA means No Known Allergies) NKA Problems Active Problems??(6) Alcohol use disorder, moderate, dependence?? Cocaine use disorder?? Hepatitis C?? IVDU (intravenous drug user)?? Opiate dependence?? Tobacco use disorder?? Education Materials Below is the list of Educational Leaflet Providered with your Discharge Instructions. Valuables and Belongings I fully understand and agree that [facility] accepts no responsibility for all my personal property including clothing, toilet articles, radios, jewelry, dentures, hearing aids, rings, money, or any other property that is in my possession or is brought to me after admission. I understand certain valuables may be placed in a hospital safe for a short period of time. I understand that the hospital is not liable for loss or damage due to accident, fire, or other natural occurrence while said property is in the safe. I accept full responsibility for any personal property that I keep with me, and will not hold the hospital responsible in case of loss or disappearance. I acknowledge that i have been encouraged to send valuables and belongings home. ?? Review of Valuable and Belonging List: With patient Date for Pt to Sign Valuables/Belongings: 02/11/23 14:29:00 ?? Valuables & Belongings ?? Clothes Electronic devices Jewelry Monetary Items Personal devices Miscellaneous Medications (Valuables) Valuables at Bedside Shirt, Undergarments, Other: sweats and sweatshirt and sandles Cell phone, Other: sabina speaker and headphones ? Dentures, partial plate, Glasses Other: red bagpack ?? Valuables Sent Home ? Valuables Sent to Security ? Other Discharge Information ? Pulmonary Rehab Status?? Pulmonary Rehab Discharge Status?? Respiratory Rate: 18 br/min ? Common Emergency Awareness Tips IS IT A STROKE? Act FAST and Check for these signs: FACE Does the face look uneven? ARM Does one arm drift down? SPEECH Does their speech sound strange? TIME Call at any sign of stroke ?? Heart Attack Signs Chest discomfort: Most heart attacks involve discomfort in the center of the chest and lasts more than a few minutes, or goes away and comes back. It can feel like uncomfortable pressure, squeezing, fullness or pain. Discomfort in upper body: Symptoms can include pain or discomfort in one or both arms, back, neck, jaw or stomach. Shortness of breath: With or without discomfort. Other signs: Breaking out in a cold sweat, nausea, or lightheaded. Remember, MINUTES DO MATTER. If you experience any of these heart attack warning signs, call to get immediate medical attention! ?? Smoking can increase your chances of developing chronic health problems and can cause harmful effects to other family members in your house. If you smoke, you are strongly encouraged to quit. Please call [facility] at [phone] or [phone]) or log in to [email or web address] for referrals to smoking cessation programs. ?? 065 Suicide & Crisis Lifeline is available 02/02 if you or someone you know needs to find a reason to keep living. By calling 141 you'll be connected to a skilled, trained counselor at a crisis center in your area. INPATIENT DISCHARGE INSTRUCTIONS SIGNATURE PAGE INA [place]PT[place] Location:[facility] Registration Date and Time:02/10/2023 13:42 EDT Primary Care Physician: Angie COBOS, Alissa D, Attending Physician: Corby COBOS, Edwin, I INA UPT[place], have received the above patient education materials/instructions and have verbalized understanding. If ambulance or transport services are being used I further acknowledge being given a choice of service. ?? If you need to contact me, please call me at this number: . Patient/Grey Inspector Name: Patient/Grey Inspector Signature: Relationship to Patient: Witness Name/Signature: Date: Patient Care team information Care Team Personnel Name: Tod Belle RN Position: [facility] RN Member Role: Primary Care Nurse Name: Angie COBOS, Alissa Freeman Position: [facility] Physician - Primary Care Member Role: PCP Address: Address: [address] [place] [address] [place] [address]- Name: Tete Massey RN Position: [facility] RN Member Role: Primary Care Nurse Name: Kamilah Garcia RN Position: [facility] RN Member Role: Primary Care Nurse Name: Keysha Sanchez RN Position: [facility] RN Member Role: Primary Care Nurse Name: Jovany Butcher MD Position: [facility] ED Medicine MD Member Role: ED Attending Physician Address: Address: [address] [place] [address] Emergency [place] [address]- Name: Sunday Johnson RN Position: [facility] RN Member Role: Patient Care Provider Name: Anabel Horton Position: [facility] ED OA Charge Member Role: ED Associate Name: Azeb Cade NP Position: [facility] Associate Professional Member Role: ED Physician Project Development Engineer Address: Address: [address] [place] [address]- Care Team Related Persons Name: CRISTIN BHATIA Address: home [address] [place] [address] Name: ALANA BHATIA Address: home [address] [place] [address]
[2023-03-29 20:28] LABS: MANUAL DIFF FLAG NO
[2023-03-29 20:31] LABS: Basophils Absolute Auto 0.1 X10*3/uL (0.0-0.2); Basophils Percent Auto 0.4 % (0-2); Eosinophils Absolute Auto 0.1 X10*3/uL (0.0-0.4); Eosinophils Percent Auto 0.4 % (0-4); Hematocrit 37.6 % (42.0-52.0); Hemoglobin 13.5 g/dl (14.0-18.0); Imm Gran Abs Auto 0.07 X10*3/uL (0.00-0.03); Imm Gran Pct Auto 0.5 % (0.0-0.4); Lymphocytes Absolute Auto 1.4 X10*3/uL (1.2-4.9); Lymphocytes Percent Auto 9.9 % (20-40); Mean Corpuscular HGB Conc 35.9 g/dl (31.0-36.0); Mean Corpuscular Hemoglobin 35.5 pg (27.0-33.0); Mean Corpuscular Volume 98.9 fL (80.0-98.0); Mean Platelet Volume 8.2 fL (9.4-12.4); Monocytes Absolute Auto 0.6 X10*3/uL (0.1-1.2); Monocytes Percent Auto 4.1 % (2-11); Neutrophils Absolute Auto 11.7 x10*3/uL (2.0-8.3); Neutrophils Percent Auto 84.7 % (45-73); Platelet Count 305 X10*3/uL (160-400); Red Cell Distribution Width 16.5 % (11.0-16.0); White Blood Count 13.8 X10*3/uL (4.8-10.8)
[2023-03-29 20:51] LABS: Alanine Aminotransferase 14 U/L (0-40); Albumin Level 4.1 g/dL (3.5-5.0); Alkaline Phosphatase 65 U/L (39-117); Anion Gap 11 (12-20); Aspartate Amino Transferase 17 U/L (5-37); Bilirubin Total 1.8 mg/dL (0.0-1.0); Blood Urea Nitrogen 14 mg/dL (9-16); C Reactive Protein 5.59 mg/dL (< or = 0.50); Calcium 9.6 mg/dL (8.4-10.2); Carbon Dioxide 35 mmol/L (22-29); Chloride 98 mmol/L (96-108); Estimated Glomerular Filt Rate > 60; Glucose Random 124 mg/dL (60-115); Potassium 4.1 mmol/L (3.3-5.1); Sodium 140 mmol/L (135-145); Total Protein 8.1 g/dL (6.5-8.0)
[2023-03-29 21:01] LABS: Lactic Acid 2.4 mmol/L (0.5-2.0)
[2023-03-29 21:41] LABS: Erythrocyte Sedimentation Rate 43 MM/HR (0-15)
[2023-03-29 22:26] LABS: Reflex Lactate? Lactic Acid Added
[2023-03-29 22:40] VITALS: BP 102/72; PULSE 66; RESP 18; TEMP 37.1; O2SAT 97
--- NOTE | 2023-03-29 22:45 | PC.NURSE ---
Pt ca&ox3, no signs of acute distress. Pt reporting 10/10 right hand pain labs done plan of care ongoing.
[2023-03-29 23:06] LABS: ~Lactic Acid-LAB USE ONLY 1.1 mmol/L (0.5-2.0)
--- NOTE | 2023-03-29 23:12 | PC.NURSE ---
Provider drained abscess at bedside. Pt being admitted for IV abx. Plan of care ongoing.
[2023-03-29] MEDS: cefTRIAXone sodium 1 GM in 0.9 % Sodium Chloride 50 ML IV (23:41)
[2023-03-29] MEDS: Ketorolac Tromethamine 15 MG/ML VIAL IVPUSH (23:41)
[2023-03-29] MEDS: 0.9 % Sodium Chloride 1,000 ML 999 ML IV (23:42)
--- NOTE | 2023-03-29 23:54 | PC.NURSE ---
Pt medicated per sep. Iv placed in Left AC. Pt given urinal. Plan of care ongoing.
[2023-03-30] VITALS (10 sets, daily range): BP systolic 101–118; BP diastolic 57–74; PULSE 49–87; RESP 12–22; TEMP 36.1–37.2; O2SAT 97–99
[2023-03-30] MEDS: methADONE HCl 20 MG/2 ML ORAL.CONC PO (00:02)
[2023-03-30] MEDS: vancomycin HCL 1,500 MG in 0.9 % Sodium Chloride 500 ML 333.33 MG IV (00:10)
--- NOTE | 2023-03-30 00:31 | PC.NURSE ---
Pt medicated per sep. plan of care ongoing.
--- NOTE | 2023-03-30 00:32 | P.HPHOSP_ITS ---
History of Present Illness Date of Service: 03/30/23 Chief Complaint: Hand infection This is a 38-year-old male with pertinent history of IV drug use disorder, opioid use disorder on methadone who presents to the emergency department for evaluation of hand infection. Patient states that started 3 days prior to presentation and has been progressive over the last 3 days. It is red, warm and associated with purulent discharge. Admits injecting into his left hand. Patient states his left hand has been infected 2 times over the last 2 months. He was at [facility] a month ago for surgical drainage of the infection. He denies fever, chills, nausea, vomiting. No chest discomfort, shortness of breath, palpitations, abdominal pain, changes in urinary or bowel habits. In the emergency department, superficial abscess was drained Review of Systems 2 Constitutional: Constitutional: Reports no additional constitutional complaints Cardiovascular: Cardiovascular: Reports no additional cardiovascular complaints Respiratory: Respiratory: Reports no additional respiratory complaints Gastrointestinal: Gastrointestinal: Reports no additional gastrointestinal complaints Genitourinary: Genitourinary: Reports no additional male genitourinary complaints Musculoskeletal: Musculoskeletal: Reports arthralgias and Reports joint swelling PMFSH Medical History Substance abuse Social History Alcohol intake: current Alcohol intake frequency: holidays/special occasions only Alcohol type: beer Patient Tobacco Use Status: Current someday Tobacco user Smoked in Last 30 Days: Yes Use of substances other than those prescribed or required for medical reasons: Yes Substance Use Type: Crack/Cocaine Substance Use Frequency: Chronic Longstanding Last Used Substance: Days (ago) Advance Directives: No Advance Directives Information Provided: No Meds Allergies Allergy/AdvReac Type Severity Reaction Status Date / Time No Known Allergies Allergy Verified 03/29/23 19:55 Active Medications: Current Medications Vancomycin HCl 1,500 mg/ (Sodium Chloride) 500 mls @ 333.333 mls/hr IV ONCE ONE Stop: 03/30/23 00:39 Last Admin: 03/30/23 00:10 Dose: 333.33 mls/hr Sodium Chloride (Ns) 1,000 mls @ 999 mls/hr IV .Q1H1M STA Stop: 03/30/23 00:38 Last Admin: 03/29/23 23:42 Dose: 999 mls/hr Physical Exam 2 Vital Signs and Narrative: Vital Signs: Last Vital Signs Temp 98.7 F 03/29/23 22:40 Pulse 66 03/29/23 22:40 Resp 18 03/29/23 22:40 BP 102/72 03/29/23 22:40 Pulse Ox 97 03/29/23 22:40 O2 Del Method Room Air 03/29/23 22:40 BMI result Body Mass Index 19.2 Middle-aged male lying in bed in no distress Neck supple, no JVD Regular rate and rhythm, S1-S2 heard Regular breath sounds bilaterally, no wheezing or crackles appreciated Abdomen soft nontender, no guarding, no rigidity Patient is awake, alert and oriented to self, place, time and person ; no focal motor deficit Msk: left hand with dressing in place, noted swelling erythema and warmth Psych: Normal mood No pedal edema Results Labs 03/29/23 20:22 03/29/23 20:23 Labs: Laboratory Results - last 24 hr 03/29/23 03/29/23 03/29/23 20:20 20:22 20:23 MCV 98.9 H MCH 35.5 H MCHC 35.9 RDW 16.5 H Plt Count 305 MPV 8.2 L Immature Gran % (Auto) 0.5 H Neut % (Auto) 84.7 H Lymph % (Auto) 9.9 L [place] % (Auto) 4.1 Eos % (Auto) 0.4 Baso % (Auto) 0.4 Lymph # (Auto) 1.4 [place] # (Auto) 0.6 Eos # (Auto) 0.1 Baso # (Auto) 0.1 Abs Immat Gran (auto) 0.07 H Absolute Neuts (auto) 11.7 H Absolute Nucleated RBC 0.000 Nucleated RBC % (auto) 0.0 ESR 43 H Anion Gap 11 L Estim Creat Clear Calc 100.0 Estimated GFR > 60 Random Glucose 124 H Lactic Acid 2.4 H* Lactic Acid F/U @ 2Hr Calcium 9.6 Total Bilirubin 1.8 H AST 17 ALT 14 Alkaline Phosphatase 65 C-Reactive Protein 5.59 H Total Protein 8.1 H Albumin 4.1 03/29/23 22:45 MCV MCH MCHC RDW Plt Count MPV Immature Gran % (Auto) Neut % (Auto) Lymph % (Auto) [place] % (Auto) Eos % (Auto) Baso % (Auto) Lymph # (Auto) [place] # (Auto) Eos # (Auto) Baso # (Auto) Abs Immat Gran (auto) Absolute Neuts (auto) Absolute Nucleated RBC Nucleated RBC % (auto) ESR Anion Gap Estim Creat Clear Calc Estimated GFR Random Glucose Lactic Acid Lactic Acid F/U @ 2Hr 1.1 Calcium Total Bilirubin AST ALT Alkaline Phosphatase C-Reactive Protein Total Protein Albumin Imaging Radiologist's Impressions: Impressions Hand/Wrist X-Ray 03/29/23 20:46 IMPRESSION: Significant soft tissue swelling along the thenar eminence and also along the dorsal aspect of the hand. I do not appreciate any radiopaque foreign body or soft tissue gas. Assessment and Plan (1) Cellulitis of hand, left: Status: Acute (2) Abscess of left hand: Status: Acute Plan This is a 38-year-old male with pertinent history of IV drug use disorder, opioid use disorder on methadone who presents to the emergency department for evaluation of hand infection. #. Purulent cellulitis of left hand with abscess. Superficial abscess drained in the ER. Will continue empiric IV antibiotics. Blood cultures obtained. Orthopedic surgery was consulted from the ER, appreciate assistance. #. Cocaine use disorder . Consulting addiction team. Monitor for withdrawal #. Opioid use disorder. On methadone DVT prohylaxis: None. Low risk Full code Admit as inpatient and will require two night minimum hospital stay for IV antibiotics Time Spent With Patient Time: Total time managing care of this patient today ____ minutes. Quality Stroke Does the patient have a stroke diagnosis?: No VTE Prior VTE?: No VTE Risk Level:: Medical - low VTE Device Contraindication: Treatment Not Indicated VTE Drug Contraindication: Treatment Not Indicated
[2023-03-30] MEDS: diphenhydrAMINE HCL 50 MG/ML VIAL IVPUSH ×2 (01:10→13:24)
--- NOTE | 2023-03-30 01:16 | PC.NURSE ---
Pt reporting feeling itchy. Per provider Minnie slowed down Pt given Benadryl. Pt requesting and given warm water Pt HOB elevated. Plan of care ongoing.
[2023-03-30 02:38] LABS: Amphetamine Screen Urine Not Detected (Not Detect); Barbiturates, Urine Not Detected (Not Detect); Benzodiazepines Screen Urine Not Detected (Not Detect); Cannabinoid Screen Urine Not Detected (Not Detect); Cocaine Screen Urine POSITIVE (Not Detect); Fentanyl, urine POSITIVE (Not Detect); Opiate Screen Urine Not Detected (Not Detect); Phencyclidine Screen Urine Not Detected (Not Detect)
--- NOTE | 2023-03-30 02:38 | PC.NURSE ---
UA collected and sent. plan of care ongoing.
--- NOTE | 2023-03-30 02:47 | PC.NURSE ---
Hospitalist in with pt. plan of care ongoing.
--- NOTE | 2023-03-30 03:42 | PC.NURSE ---
Pt given a warm blanket and the HOB lowered. Lights dimmed. Plan of care ongoing.
[2023-03-30 05:35] LABS: Alanine Aminotransferase 10 U/L (0-40); Albumin Level 3.3 g/dL (3.5-5.0); Alkaline Phosphatase 55 U/L (39-117); Anion Gap 9 (12-20); Aspartate Amino Transferase 13 U/L (5-37); Bilirubin Total 0.9 mg/dL (0.0-1.0); Blood Urea Nitrogen 18 mg/dL (9-16); Calcium 8.6 mg/dL (8.4-10.2); Carbon Dioxide 28 mmol/L (22-29); Chloride 106 mmol/L (96-108); Creatinine Clr Calc Pharmacy 85.8; Estimated Glomerular Filt Rate > 60; Glucose Random 102 mg/dL (60-115); Potassium 3.7 mmol/L (3.3-5.1); Sodium 139 mmol/L (135-145); Total Protein 6.5 g/dL (6.5-8.0)
--- NOTE | 2023-03-30 06:38 | PHA.PROG ---
Admission Date/Time: March 30, 2023 00:31 Indication: skin/skin structure Weight in k.6 kg Adjusted body weight in Kg: [place] body weight in Kg: Obesity Dosing Indication % IBW: Serum Creatinine - Last 168 Hours 03/29/23 03/30/23 20:23 04:57 Creatinine 0.85 0.99 Estimated CrCl and GFR - Last 168 Hours 03/29/23 03/30/23 20: 04:57 Estim Creat Clear Calc 100.0 85.8 Estimated GFR > 60 > 60 Vancomycin Loading Dose: 1500 mg Current Vancomycin Dosing Regimen: 1000mg q12h Vancomycin Monitoring using AUC goal of 400 - 600 range with trough as surrogate marker: auc 573, trough 17.6 Date and Time for next Vancomycin Level to be drawn: 03/31 @1100 Pharmacist Comments on Vancomycin Plan: Vancomycin dosing will take advantage of [employer] TVRX as a clinical decision support tool that uses Bayesian modeling to calculate individual patient's pharmacokinetic parameters and forecast the patient's drug concentration time course with the target goal AUC 24 range of 400 - 600 mg/L/hr.
--- NOTE | 2023-03-30 06:41 | PC.NURSE ---
Pt ca&ox4, no signs of distress. Pt sitting up speaking on his cell phone. Plan of care ongoing.
--- NOTE | 2023-03-30 06:59 | PC.NURSE ---
Pt requested and given coffee. Handoff Report given to oncoming RN.
[2023-03-30] MEDS: 0.9 % Sodium Chloride Flush 3 ML SYRINGE IVFLUSH (07:31)
--- NOTE | 2023-03-30 08:31 | PC.NURSE ---
pt a&ox3. respirations even and unlabored.lung sounds clear bilaterally. pt left hand wrapped with gauze, no visible bleeding or swelling noted. pt reports pain 2/10 on the left hand. pt resting comfortably. pt normal sinus on tele.
--- NOTE | 2023-03-30 08:49 | PHA.MEDREC ---
Pharmacy Consult ? Medication Reconciliation Pharmacy has completed the medication reconciliation. Pt states he only gets methadone 85mg from [facility]; notified nurse about methadone verification form
--- NOTE | 2023-03-30 09:55 | PM.CNOR ---
History of Present Illness HPI Consult date: 03/30/23 Chief complaint: Hand infection Narrative: This is a 38-year-old male with pertinent history of IV drug use disorder, opioid use disorder on methadone who presents to the emergency department for evaluation of hand infection. Patient states that started 3 days prior to presentation and has been progressive over the last 3 days. It is red, warm and associated with purulent discharge. Admits injecting into his left hand. Patient states his left hand has been infected 2 times over the last 2 months. He was at [facility] a month ago for surgical drainage of the infection. In the emergency department, superficial abscess was drained of 30cc pus. The patient was admitted to the medical service and orthopedics was consulted for further recommendations. Review of Systems Review of Systems: per [facility] Past Medical History Medical History Substance abuse Social History Social History Alcohol intake: current Alcohol intake frequency: holidays/special occasions only Alcohol type: beer Patient Tobacco Use Status: Current everyday Tobacco user Smoked in Last 30 Days: Yes Use of substances other than those prescribed or required for medical reasons: Yes Substance Use Type: Crack/Cocaine Substance Use Frequency: Chronic Longstanding Last Used Substance: Days (ago) Advance Directives: No Advance Directives Information Provided: No Nutrition Risks: No Nutritional Risk Meds Allergies Allergy/AdvReac Type Severity Reaction Status Date / Time No Known Allergies Allergy Verified 03/29/23 19:55 Active Medications: Current Medications Acetaminophen (Acetaminophen 325 Mg Tablet) 650 mg PO Q6H PRN PRN Reason: Pain, Mild (Pain Scale 1-3) Ceftriaxone Sodium 1 gm/ (Sodium Chloride) 50 mls @ 100 mls/hr IV Q24H DEE Melatonin (Melatonin 3 Mg Tablet) 6 mg PO BEDTIME PRN PRN Reason: Insomnia Ondansetron HCl (Ondansetron Hcl 4 Mg/2 Ml Vial) 4 mg IVPUSH Q8H PRN PRN Reason: Nausea and Vomiting Pharmacy Consult (Consult Rx Vancomycin Dosing) 1 each MISCELLANE DAILY PRN PRN Reason: Consult order Sodium Chloride (0.9 % Sodium Chloride Flush 3 Ml Syringe) 3 ml IVFLUSH QSHIFT [facility] Last Admin: 03/30/23 07:31 Dose: 3 ml Home Medications Medication Instructions Recorded Confirmed Last Taken Type methadone 10 mg/mL oral concentrate 85 mg PO DAILY 03/30/23 Unknown History Physical Exam Vital Signs: Vital Signs: Last Vital Signs Temp 98.3 F 03/30/23 07:33 Pulse 63 03/30/23 07:33 Resp 18 03/30/23 07:33 BP 108/62 03/30/23 07:33 Pulse Ox 97 03/30/23 07:33 O2 Del Method Room Air 03/30/23 07:33 BMI result Body Mass Index 19.2 Const: General: cooperative, healthy appearing, comfortable and no acute distress Extrem: Other: Left hand abscess at the base of the thumb. There is no active drainage. He has some swelling with tension over the dorsum of the hand. No pain along the flexor tendons. No pain with axial loading of the thumb or wrist. NVI. Results Labs 03/29/23 20:22 03/30/23 04:57 Labs: Abnormal lab results 03/29/23 03/29/23 03/29/23 Range/Units 20:20 20:22 20:23 WBC 13.8 H (4.8-10.8) X10*3/uL RBC 3.80 L (4.60-5.80) X10*6/uL Hgb 13.5 L (14.0-18.0) g/dl Hct 37.6 L (42.0-52.0) % MCV 98.9 H (80.0-98.0) fL MCH 35.5 H (27.0-33.0) pg RDW 16.5 H (11.0-16.0) % MPV 8.2 L (9.4-12.4) fL Immature Gran % (Auto) 0.5 H (0.0-0.4) % Neut % (Auto) 84.7 H (45-73) % Lymph % (Auto) 9.9 L (20-40) % Abs Immat Gran (auto) 0.07 H (0.00-0.03) X10*3/uL Absolute Neuts (auto) 11.7 H (2.0-8.3) x10*3/uL ESR 43 H (0-15) MM/HR Carbon Dioxide 35 H (22-29) mmol/L Anion Gap 11 L (12-20) BUN (9-16) mg/dL Random Glucose 124 H (60-115) mg/dL Lactic Acid 2.4 H* (0.5-2.0) mmol/L Total Bilirubin 1.8 H (0.0-1.0) mg/dL C-Reactive Protein 5.59 H (< or = 0.50) mg/dL Total Protein 8.1 H (6.5-8.0) g/dL Albumin (3.5-5.0) g/dL Urine Fentanyl Screen (Not Detect) Urine Cocaine Screen (Not Detect) 03/30/23 03/30/23 Range/Units 02:25 04:57 WBC (4.8-10.8) X10*3/uL RBC (4.60-5.80) X10*6/uL Hgb (14.0-18.0) g/dl Hct (42.0-52.0) % MCV (80.0-98.0) fL MCH (27.0-33.0) pg RDW (11.0-16.0) % MPV (9.4-12.4) fL Immature Gran % (Auto) (0.0-0.4) % Neut % (Auto) (45-73) % Lymph % (Auto) (20-40) % Abs Immat Gran (auto) (0.00-0.03) X10*3/uL Absolute Neuts (auto) (2.0-8.3) x10*3/uL ESR (0-15) MM/HR Carbon Dioxide (22-29) mmol/L Anion Gap 9 L (12-20) BUN 18 H (9-16) mg/dL Random Glucose (60-115) mg/dL Lactic Acid (0.5-2.0) mmol/L Total Bilirubin (0.0-1.0) mg/dL C-Reactive Protein (< or = 0.50) mg/dL Total Protein (6.5-8.0) g/dL Albumin 3.3 L (3.5-5.0) g/dL Urine Fentanyl Screen POSITIVE H (Not Detect) Urine Cocaine Screen POSITIVE H (Not Detect) H & H 03/29/23 Range/Units 20:22 Hgb 13.5 L (14.0-18.0) g/dl Hct 37.6 L (42.0-52.0) % All other labs normal. Assessment and Plan (1) Abscess of left hand: Status: Acute Plan We discussed options which include operative treatment. Given the extent of the infection the the recommendation is to proceed with I&D left hand. We discussed risk, benefits and alternatives. Risk including but not limited to ongoing infection, stiffness, pain and injury to surround nerves and tissues. he does understand all this and would like to proceed with With Irrigation adn debridement left hand with Dr Cedeno. Patient will be kept NPO. Time Spent With Patient Time: Total time managing care of this patient today ____ minutes. Procedures Date of Service Date of Service: 03/30/23
--- NOTE | 2023-03-30 10:20 | PC.NURSE ---
pt transferred to ED overflow. faxed release of information to methadone lcinic, called and left message, awaiting call back to verify dose. IV 20 L AC asymptomatic, pt resting, no apparent distress, will ctm. awaiting OR, pt NPO
--- NOTE | 2023-03-30 11:08 | P.CONOP_ITS ---
History of Present Illness HPI Consult date: 03/30/23 Chief complaint: Hand infection Narrative: The patient is a 38-year-old man with an IV drug use history. He complains of several days of painful swelling on the radial aspect of his left wrist/hand. We were consult did by the ED for a shooters abscess. They had made a small incision in the ED during the night. Unfortunately they fed him breakfast at 07:00. PMFSH Past Medical History Medical History Substance abuse Social History Social History Alcohol intake: current Alcohol intake frequency: holidays/special occasions only Alcohol type: beer Patient Tobacco Use Status: Current everyday Tobacco user Smoked in Last 30 Days: Yes Use of substances other than those prescribed or required for medical reasons: Yes Substance Use Type: Crack/Cocaine Substance Use Frequency: Chronic Longstanding Last Used Substance: Days (ago) Advance Directives: No Advance Directives Information Provided: No Nutrition Risks: No Nutritional Risk Meds Allergies Allergy/AdvReac Type Severity Reaction Status Date / Time No Known Allergies Allergy Verified 03/29/23 19:55 Active Medications: Current Medications Acetaminophen (Acetaminophen 325 Mg Tablet) 650 mg PO Q6H PRN PRN Reason: Pain, Mild (Pain Scale 1-3) Ceftriaxone Sodium 1 gm/ (Sodium Chloride) 50 mls @ 100 mls/hr IV Q24H [facility] Vancomycin HCl 1,000 mg/ (Sodium Chloride) 270 mls @ 270 mls/hr IV Q12H DEE Melatonin (Melatonin 3 Mg Tablet) 6 mg PO BEDTIME PRN PRN Reason: Insomnia Ondansetron HCl (Ondansetron Hcl 4 Mg/2 Ml Vial) 4 mg IVPUSH Q8H PRN PRN Reason: Nausea and Vomiting Pharmacy Consult (Consult Rx Vancomycin Dosing) 1 each MISCELLANE DAILY PRN PRN Reason: Consult order Sodium Chloride (0.9 % Sodium Chloride Flush 3 Ml Syringe) 3 ml IVFLUSH QSHIFT [facility] Last Admin: 03/30/23 07:31 Dose: 3 ml Home Medications Medication Instructions Recorded Confirmed Last Taken Type methadone 10 mg/mL oral concentrate 85 mg PO DAILY 03/30/23 Unknown History Physical Exam 2 Vital Signs: Vital Signs: Last Vital Signs Temp 98.3 F 09/18/23 07:33 Pulse 63 03/30/23 07:33 Resp 18 03/30/23 07:33 BP 108/62 03/30/23 07:33 Pulse Ox 97 03/30/23 07:33 O2 Del Method Room Air 03/30/23 07:33 BMI result Body Mass Index 19.2 Const: General: cooperative and no acute distress O rientation/consciousness: oriented to person and oriented to place HEENT: Head: Yes normocephalic and Yes atraumatic Eyes: EOM: EOMs intact bilaterally Resp: Effort & Inspection: normal respiratory effort and able to speak in complete sentences Cardio: Jugular venous distension: no JVD Skin: General skin exam: turgor normal Rashes: no rashes Neuro: General: oriented to person and oriented to place Extrem: Other: Evaluation of left Upper Extremity: He has got an abscess on the radial aspect of his right wrist roughly over the basal joint of the thumb. There is an approximately 1.2 cm longitudinal incision that was made with copious creamy yellow purulence coming from within. He has also had some more superficial breakdown of the skin with a blister area of that had been filled with purulence. He can actively flex and extend the thumb with Minimal discomfort. No pain with axial loading of the thumb. He can make a fist and extend all of his digits and flex and extend his wrist without discomfort. Cap refill brisk to all digits. Radiographs: Three views of the left hand were reviewed by me today. No fractures or dislocations. No radiopaque foreign bodies or broken needles within the wound. Psych: Appearance: grossly normal Affect: normal affect Attitude: c ooperative Results Labs 03/29/23 20:22 03/30/23 04:57 Labs: Abnormal lab results 03/29/23 03/29/23 03/29/23 Range/Units 20:20 20:22 20:23 WBC 13.8 H (4.8-10.8) X10*3/uL RBC 3.80 L (4.60-5.80) X10*6/uL Hgb 13.5 L (14.0-18.0) g/dl Hct 37.6 L (42.0-52.0) % MCV 98.9 H (80.0-98.0) fL MCH 35.5 H (27.0-33.0) pg RDW 16.5 H (11.0-16.0) % MPV 8.2 L (9.4-12.4) fL Immature Gran % (Auto) 0.5 H (0.0-0.4) % Neut % (Auto) 84.7 H (45-73) % Lymph % (Auto) 9.9 L (20-40) % Abs Immat Gran (auto) 0.07 H (0.00-0.03) X10*3/uL Absolute Neuts (auto) 11.7 H (2.0-8.3) x10*3/uL ESR 43 H (0-15) MM/HR Carbon Dioxide 35 H (22-29) mmol/L Anion Gap 11 L (12-20) BUN (9-16) mg/dL Random Glucose 124 H (60-115) mg/dL Lactic Acid 2.4 H* (0.5-2.0) mmol/L Total Bilirubin 1.8 H (0.0-1.0) mg/dL C-Reactive Protein 5.59 H (< or = 0.50) mg/dL Total Protein 8.1 H (6.5-8.0) g/dL Albumin (3.5-5.0) g/dL Urine Fentanyl Screen (Not Detect) Urine Cocaine Screen (Not Detect) 03/30/23 03/30/23 Range/Units 02:25 04:57 WBC (4.8-10.8) X10*3/uL RBC (4.60-5.80) X10*6/uL Hgb (14.0-18.0) g/dl Hct (42.0-52.0) % MCV (80.0-98.0) fL MCH (27.0-33.0) pg RDW (11.0-16.0) % MPV (9.4-12.4) fL Immature Gran % (Auto) (0.0-0.4) % Neut % (Auto) (45-73) % Lymph % (Auto) (20-40) % Abs Immat Gran (auto) (0.00-0.03) X10*3/uL Absolute Neuts (auto) (2.0-8.3) x10*3/uL ESR (0-15) MM/HR Carbon Dioxide (22-29) mmol/L Anion Gap 9 L (12-20) BUN 18 H (9-16) mg/dL Random Glucose (60-115) mg/dL Lactic Acid (0.5-2.0) mmol/L Total Bilirubin (0.0-1.0) mg/dL C-Reactive Protein (< or = 0.50) mg/dL Total Protein (6.5-8.0) g/dL Albumin 3.3 L (3.5-5.0) g/dL Urine Fentanyl Screen POSITIVE H (Not Detect) Urine Cocaine Screen POSITIVE H (Not Detect) H & H 03/29/23 Range/Units 20:22 Hgb 13.5 L (14.0-18.0) g/dl Hct 37.6 L (42.0-52.0) % All other labs normal. Assessment and Plan (1) Abscess of left hand: Status: Acute Plan Assessment and plan: 1. Left radial hand shooters abscess IV drug use I educated the patient about this condition We discussed operative and non operative treatment options. Plan is taken to the operating room for an I and D of this abscess and have him admitted for IV antibiotics. Unfortunately, he was fed this morning. We will taken to the operating room once cleared by Anesthesia, anticipated 8 hours after eating. The risks and benefits of operative treatment were discussed with the patient and the patient wishes to proceed with surgery. These risks include, but are not limited to risk of damage to blood vessels, nerves, tendons, infection, recurrence, incomplete relief of preoperative symptoms, persistent pain, possible need for further surgery and the risks associated with regional blocks and anesthesia. The plan is to take the patient to the operating room today for the following procedures: 1. Left hand abscess I and D 2. [ ] All of the preoperative paperwork including the consent was filled out today. All the patient's questions were answered. Time Spent With Patient Time: Total time managing care of this patient today ____ minutes. Procedures Date of Service Date of Service: 03/30/23
--- NOTE | 2023-03-30 11:43 | PM.EVENT ---
Event Note Date of Service: 03/30/23 Event Note: 38-year-old male with pertinent history of IV drug use disorder, opioid use disorder on methadone who presents to the emergency department for evaluation of hand infection. #. Purulent cellulitis of left hand with abscess. abscess drained in the ER, continue IV ceftriaxone added IV vancomycin seen by orthopedic surgeon will undergo I and D of left hand due to the extent of infection Follow blood cultures, CBC, CRP continue analgesics. # acute lactic acidosis due to dehydration resolved with IV fluids #. Cocaine use disorder . addiction team consulted,Monitor for withdrawal #. Opioid use disorder. On methadone DVT prohylaxis: None. Low risk Full code Will need continued inpatient hospitalization for IV antibiotics and further surgical I&D . Time Spent With Patient Time: Total time managing care of this patient today ____ minutes.
--- NOTE | 2023-03-30 11:45 | HE.PHANOTE ---
RE METHADONE PT GETS M[facility]ONE [facility] LAST DOSE WAS 87 MG ON 03/28 TALISHA
[2023-03-30] MEDS: methADONE HCl 20 MG/2 ML ORAL.CONC 87 MG PO (12:01)
--- NOTE | 2023-03-30 12:14 | PC.NURSE ---
methadone dose given per MAR, verification in chart. pt met with surgeon this AM, I&D pending for this afternoon at 1500 or later due to pt eating breakfast this AM. Pt NPO now
[2023-03-30] MEDS: vancomycin HCL 1,000 MG in 0.9 % Sodium Chloride 250 ML 100 MG IV (13:26)
--- NOTE | 2023-03-30 13:29 | PC.NURSE ---
pr , Benadryl given via IV first, then vanco hooked up and infusing AT 100ml/hr (slowed down) due to pt reaction last night during vanco infusion
--- NOTE | 2023-03-30 13:56 | MHC.CM.PN ---
Met w/pt to discuss d/c planning: pt identifies as homeless: states he has a mailing address but resides in a tent in the [facility]. Pt receives methadone from [facility] in [place]. Pt states he has transportation for the clinic and uses the bus on occasion. Discussed group home and/or STR placement following d/c in the event he needs daily dressing or IV care: states he can't think that far ahead and just wants to sleep at this time. CM to follow for finalization of d/c needs.
--- NOTE | 2023-03-30 14:00 | PC.NURSE ---
pt to [facility].
--- NOTE | 2023-03-30 15:42 | MHC.SHP ---
Pre-Procedural Eval Section A Date of Service: 03/30/23 The patient is an INPATIENT: No Changes since office visit: No Cold of Flu in the past 2 weeks, No New Medical Problems, No Changes in Medication and No Patient answered all questions The History & Physical has been completed within 30 days and I have reviewed it.: Yes Section B Chief Complaint: Hand infection Allergies: Allergies Allergy/AdvReac Type Severity Reaction Status Date / Time No Known Allergies Allergy Verified 03/29/23 19:55 Plan I have reviewed the history and physical and performed a pertinent physical examination on my patient. No changes have occurred unless specified. Time Spent With Patient Time: Total time managing care of this patient today ____ minutes.
--- NOTE | 2023-03-30 15:42 | W.PM.OPN ---
Operative Note Operative Note Date of Service: 03/30/23 Narrative: Operative Note Narrative: Preop diagnosis: 1. Left radial hand infection status post IV drug use Postop diagnosis: Same Procedure: 1. Left radial hand infection I&D Surgeon: China Cedeno MD Anesthesia: General Anesthesia Findings: Copious creamy yellow purulence from radial hand wound Implants: Iodoform drain x1 Tourniquet time: minutes EBL: 5.0 ml Specimen: Cultures taken of purulence Drains: None Complications: None Disposition: Brought to the recovery room in stable condition Plan: Admit to floor and hospitalist team for IV antibiotics Follow-up in 3-5 days after discharge for wound check, suture removal and to naseem cultures Indications: The patient is a 38 year old man with a left radial hand infection secondary to IV drug use . The risks and benefits of operative treatment, including but not limited to risk of damage to blood vessels, nerves, tendons, infection, recurrence, persistent pain or numbness, incomplete resolution of preoperative symptoms, or need for further surgery were discussed with the patient and they wished to proceed with surgery. Procedure: Once consent was obtained patient was brought back to the operating suite and placed in the operating table in a supine position. A regional block was performed by the anesthesia team. Perioperative antibiotics and anesthesia was administered by the anesthesia team. A tourniquet was applied to the proximal aspect of the left upper extremity and the limb was prepped and draped in a standard surgical fashion. The tourniquet was not inflated during the case.. I 1st debrided the left radial hand wound of some superficial devitalized tissue using a Ray-Kina. There was also some fibrinous exudate and this was debrided again using a Ray-Kina and a rongeur. There was an open wound that measured about 1.5 cm in diameter over the dorsal radial aspect of the basal joint. There was a copious amount of creamy yellow purulence, which we cultured. The wound did not appear to go deep to the joint, and he also had no pain with axial loading when seen in preop hold. He was also able to actively flex and extend the thumb in preop hold with minimal discomfort, and I did not see any tendons exposed within the wound. The cavity extended beneath the skin for a distance of approximately 1 and half to 2-1/2 cm depth from the edge of the wound circumferentially. The wound was then copiously irrigated with normal saline. Again I did not see any exposure to the joint or the tendons. I Did place a single 4-0 Prolene suture to reapproximate the proximal aspect of the wound. This still left a distal aspect of the wound open for drainage. I also then placed 1 strip of iodoform gauze into the wound to facilitate drainage. I also performed a block of the superficial radial nerve and injected some core % Marcaine into the wound. The patient also had a regional block. Before surgery the patient was adamant that he wanted pain medication after his surgery. A sterile dressing was applied. The patient appears to have tolerated the procedure well and with no complications. All digits were well vascularized conclusion of the case.
--- NOTE | 2023-03-30 15:55 | PC.NURSE ---
left a/c removed as per md. Cedeno
--- NOTE | 2023-03-30 16:59 | P.CONAN_ITS ---
HPI - Anesthesia Eval Consult details Narrative: ivda , for hand abscess left PMFSH Active Problems Active Problems: All Active Problems (Updated 03/29/23 @ 23:41 by Jace Levin MD) Methadone maintenance therapy patient (Acute) Heroin use disorder, severe (Acute) Abscess of left hand (Acute) Cellulitis of hand, left (Acute) Past Medical History Medical History Substance abuse Family History Family history of problems with anesthesia: No Surgical History Surgical History Hx of skin graft Hx of cholecystectomy Hx of hand surgery History of Problems with Anesthesia: No Social History Social History Alcohol intake: current Alcohol intake frequency: holidays/special occasions only Alcohol type: beer Patient Tobacco Use Status: Current everyday Tobacco user Tobacco use type: Cigarette Cigarettes Per Day: 20 Substance Use Type: Crack/Cocaine service: No Meds Allergies Allergy/AdvReac Type Severity Reaction Status Date / Time No Known Allergies Allergy Verified 03/29/23 19:55 Active Medications: Current Medications Acetaminophen (Acetaminophen 325 Mg Tablet) 650 mg PO Q6H PRN PRN Reason: Pain, Mild (Pain Scale 1-3) Ceftriaxone Sodium 1 gm/ (Sodium Chloride) 50 mls @ 100 mls/hr IV Q24H [facility] Vancomycin HCl 1,000 mg/ (Sodium Chloride) 270 mls @ 270 mls/hr IV Q12H [facility] Last Admin: 03/30/23 13:26 Dose: 100 mls/hr Melatonin (Melatonin 3 Mg Tablet) 6 mg PO BEDTIME PRN PRN Reason: Insomnia Methadone HCl (Methadone Hcl 20 Mg/2 Ml Oral.Conc) 87 mg PO DAILY [facility] Last Admin: 03/30/23 12:01 Dose: 87 mg Ondansetron HCl (Ondansetron Hcl 4 Mg/2 Ml Vial) 4 mg IVPUSH Q8H PRN PRN Reason: Nausea and Vomiting Pharmacy Consult (Consult Rx Vancomycin Dosing) 1 each MISCELLANE DAILY PRN PRN Reason: Consult order Sodium Chloride (0.9 % Sodium Chloride Flush 3 Ml Syringe) 3 ml IVFLUSH QSHIFT [facility] Last Admin: 03/30/23 07:31 Dose: 3 ml Home Medications Medication Instructions Recorded Confirmed Last Taken Type methadone 10 mg/mL oral concentrate 87 mg PO DAILY 03/30/23 03/30/23 03/28/23 History Exam Exam Date and Time: March 30, 2023 1659 Height,Weight and Vital Signs: h Height 5 ft 10 in Weight 60.6 kg Last Vital Signs Temp 98.9 F 03/30/23 14:33 Pulse 49 L 03/30/23 14:33 Resp 15 03/30/23 14:33 BP 101/69 03/30/23 14:33 Pulse Ox 98 03/30/23 14:33 O2 Del Method Room Air 03/30/23 14:33 Pertinent Lab Results Pertinent Lab Results: Laboratory Tests 03/29/23 03/29/23 03/29/23 20:20 20:22 20:23 WBC 13.8 H RBC 3.80 L Hgb 13.5 L Hct 37.6 L MCV 98.9 H MCH 35.5 H MCHC 35.9 RDW 16.5 H Plt Count 305 MPV 8.2 L Immature Gran % (Auto) 0.5 H Neut % (Auto) 84.7 H Lymph % (Auto) 9.9 L [place] % (Auto) 4.1 Eos % (Auto) 0.4 Baso % (Auto) 0.4 Lymph # (Auto) 1.4 [place] # (Auto) 0.6 Eos # (Auto) 0.1 Baso # (Auto) 0.1 Abs Immat Gran (auto) 0.07 H Absolute Neuts (auto) 11.7 H Absolute Nucleated RBC 0.000 Nucleated RBC % (auto) 0.0 ESR 43 H Sodium 140 Potassium 4.1 Chloride 98 Carbon Dioxide 35 H Anion Gap 11 L BUN 14 Creatinine 0.85 Estim Creat Clear Calc 100.0 Estimated GFR > 60 Random Glucose 124 H Lactic Acid 2.4 H* Lactic Acid F/U @ 2Hr Calcium 9.6 Total Bilirubin 1.8 H AST 17 ALT 14 Alkaline Phosphatase 65 C-Reactive Protein 5.59 H Total Protein 8.1 H Albumin 4.1 Urine Opiates Screen Urine Fentanyl Screen Ur Barbiturates Screen Ur Phencyclidine Scrn Ur Amphetamines Screen U Benzodiazepines Scrn Urine Cocaine Screen U Marijuana (THC) Screen 03/29/23 03/30/23 03/30/23 22:45 02:25 04:57 WBC RBC Hgb Hct MCV MCH MCHC RDW Plt Count MPV Immature Gran % (Auto) Neut % (Auto) Lymph % (Auto) [place] % (Auto) Eos % (Auto) Baso % (Auto) Lymph # (Auto) [place] # (Auto) Eos # (Auto) Baso # (Auto) Abs Immat Gran (auto) Absolute Neuts (auto) Absolute Nucleated RBC Nucleated RBC % (auto) ESR Sodium 139 Potassium 3.7 Chloride 106 Carbon Dioxide 28 Anion Gap 9 L BUN 18 H Creatinine 0.99 Estim Creat Clear Calc 85.8 Estimated GFR > 60 Random Glucose 102 Lactic Acid Lactic Acid F/U @ 2Hr 1.1 Calcium 8.6 D Total Bilirubin 0.9 AST 13 ALT 10 Alkaline Phosphatase 55 C-Reactive Protein Total Protein 6.5 Albumin 3.3 L Urine Opiates Screen Not Detected Urine Fentanyl Screen POSITIVE H Ur Barbiturates Screen Not Detected Ur Phencyclidine Scrn Not Detected Ur Amphetamines Screen Not Detected U Benzodiazepines Scrn Not Detected Urine Cocaine Screen POSITIVE H U Marijuana (THC) Screen Not Detected Airway Mallampati Class: II TM Dist: >3cm Neck ROM: Full Heart: bradycardia Lungs: clear Other: sleepy , eye right side drooped Assessment and Plan Assessment Anesthesia Assessment: Anesthesia Plan Discussed and Chart Reviewed Final Anesthetic Review Family History of Problems with Anesthesia: No History of Problems with Anesthesia: No ASA Class: III and Emergency Final Preanesthetic Review: No Changes in Pt Med Stat, Meds/Allgs Chart Reviewed, Consent Obtained/Reviewed and Anes Risks/Benef Reviewed Patient Risk: Intermediate Procedure Risk: Low Anesthetic Plan Anesthetic Plan: GA, MAC: and Regional Block Disposition: Standard PACU
[2023-03-30] MEDS: Nicotine 21 MG PATCH.TD24 TRANSDERMA (18:48)
[2023-03-30] MEDS: cefTRIAXone sodium 1 GM in 0.9 % Sodium Chloride 50 ML IV (20:34)
[2023-03-31] VITALS: BP 92/59; PULSE 51; RESP 16; TEMP 36; O2SAT 96
[2023-03-31] MEDS: vancomycin HCL 1,000 MG in 0.9 % Sodium Chloride 250 ML 270 MG IV (00:06)
[2023-03-31] MEDS: diphenhydrAMINE HCL 25 MG CAPSULE PO (00:30)
[2023-03-31] MEDS: 0.9 % Sodium Chloride Flush 3 ML SYRINGE IVFLUSH ×4 (00:31→22:59)
[2023-03-31 04:00] VITALS: BP 110/70; PULSE 59; RESP 16; TEMP 36.1; O2SAT 99
[2023-03-31 07:18] VITALS: BP 115/72; PULSE 53; RESP 16; TEMP 36.5; O2SAT 100
[2023-03-31] MEDS: Nicotine 21 MG PATCH.TD24 TRANSDERMA (07:35)
[2023-03-31] MEDS: methADONE HCl 20 MG/2 ML ORAL.CONC 87 MG PO (07:36)
--- NOTE | 2023-03-31 09:55 | MHC.RECOVRN ---
This writer technical publications met with patient after receiving addiciton consult. Pt admitted for abscess. Pt was resting, sitting up in bed. Pt reports stable on 87mg MTD at [facility]. Pt reports substance of choice is STACY. Pt reports injection in hand, at times missing the vein, causing abscess to form. Pt reports intermittent STACY cravings since here at [facility]. Pt reports approximately one year [employer], recovery time from STACY. Pt reports found Baclofen helpful for STACY cravings. Pt reports in the past has been though addiction levels of treatment including [facility], [facility]. Pt reports occasional illicit opiate use, if issue w/ transportatatin to get to MTD clinic, less then 1x per week. Pt reports currently homeless, living in [facility] in [place]. Pt reports has hx of skin infections, most recently was at [facility] for left hand sx and infection tx. Pt reports concerns with pain management. Pt reports prior to receiving MTD dose, 10/10 pain. Pt reports pain has decreased since a.m. dose. Pt concerned for wound/packing and pain management. Harm reduction reviewed, patient declined. This writer technical publications and patient discussed addiction/recovery supports. Pt verbalized understanding. Pt agreeable to review resources at bedside.
--- NOTE | 2023-03-31 10:10 | PM.PNORT ---
Subjective Subjective Date of Service: 03/31/23 Interval history: POD 1 s/p left hand I&D no overnight events states his pain is not well controlled Physical Exam Vital Signs: Vital Signs: Last Vital Signs Temp 97.7 F 03/31/23 07:18 Pulse 53 03/31/23 07:18 Resp 16 03/31/23 07:18 BP 115/72 03/31/23 07:18 Pulse Ox 100 03/31/23 07:18 O2 Del Method Room Air 03/31/23 07:18 BMI result Body Mass Index 19.2 Const: General: cooperative, healthy appearing and no acute distress Resp: Effort & Inspection: normal respiratory effort and able to speak in complete sentences Cardio: Rate: regular rate Peripheral pulses: Peripheral pulses 2+ throughout GI: Palpation (GI): Soft to palpation Skin: General skin exam: no rashes or lesions noted Extrem: Other: left hand incision clean dry and intact,no purlance. NVI Procedures Date of Service Date of Service: 03/31/23 Progress Note: A&P Assessment and plan (1) Abscess of left hand: Status: Acute Assessment and Plan: cont iv abx-cultures pending iodoform packing removed and fluff gauzed applied with ana laura wrap encouraged rom on hand and fingers Time Spent With Patient Time: Total time managing care of this patient today ____ minutes. Quality Stroke Does the patient have a stroke diagnosis?: No VTE Prior VTE?: No VTE Risk Level:: Medical - low VTE Device Contraindication: Treatment Not Indicated VTE Drug Contraindication: Treatment Not Indicated
--- NOTE | 2023-03-31 11:46 | HO.POSTANES ---
Post Anesthesia Evaluation Post Anesthesia Evaluation Date of Service: 03/31/23 Vital Signs: Vital Signs Temp Pulse Resp BP Pulse Ox O2 Del Method 03/31/23 07:18 97.7 F 53 16 115/72 100 Room Air 03/31/23 04:00 96.9 F 59 16 110/70 99 Room Air 03/31/23 00:00 96.8 F 51 16 92/59 L 96 Room Air Anesthesia: Nerve Block and General Mental Status: Awake Pain Control: Satisfactory (patient states pain not wellcontrolled) Nausea/Vomiting: None Hydration: Adequate Anesthesia-Related Issues: No Anes. Related Issues
--- NOTE | 2023-03-31 14:26 | P.PNIM_ITS ---
Subjective Subjective Date of Service: 03/31/23 Interval History: Complaining of left hand pain requesting for Dilaudid since feel morphine 4 mg is not going to help his pain, denies nausea, no vomiting, no abdominal pain , no fevers no chills no other acute issues overnight, underwent I&D left hand yesterday by orthopedic surgeon. Review of Systems All other system reviewed and negative. Physical Exam 2 Vital Signs: Vital Signs: Last Vital Signs Temp 97.7 F 03/31/23 07:18 Pulse 53 03/31/23 07:18 Resp 16 03/31/23 07:18 BP 115/72 03/31/23 07:18 Pulse Ox 100 03/31/23 07:18 O2 Del Method Room Air 03/31/23 07:18 BMI result Body Mass Index 19.2 Const: Other: General awake alert x3 resting comfortably in no acute distress. Neck supple no JVD. CVS regular rate rhythm, Respiratory lungs clear to auscultation, no respiratory distress, no wheeze, no rhonchi. Gastrointestinal abdomen soft, nontender, bowel sounds audible, no guarding , no rigidity. Extremities no edema. Left hand swollen, dressing in place Neuro nonfocal Skin no rash Objective Data Active Medications Acetaminophen (Acetaminophen 325 Mg Tablet) 650 mg PO Q6H PRN PRN Reason: Pain, Mild (Pain Scale 1-3) Hydromorphone HCl (Hydromorphone Hcl 1 Mg/Ml Syringe) 1 mg IVPUSH Q4H PRN; Protocol PRN Reason: Pain, Severe (Pain Scale 7-10) Ceftriaxone Sodium 1 gm/ (Sodium Chloride) 50 mls @ 100 mls/hr IV Q24H [facility] Last Infusion: 03/30/23 21:17 Dose: Infused Documented By: MARIOLA Vancomycin HCl 1,000 mg/ (Sodium Chloride) 270 mls @ 270 mls/hr IV Q12H [facility] Last Infusion: 03/31/23 01:15 Dose: Infused Documented By: SOFIA Melatonin (Melatonin 3 Mg Tablet) 6 mg PO BEDTIME PRN PRN Reason: Insomnia Methadone HCl (Methadone Hcl 20 Mg/2 Ml Oral.Conc) 87 mg PO DAILY [facility] Last Admin: 03/31/23 07:36 Dose: 87 mg Documented By: CHANCE Nicotine (Nicotine 21 Mg Patch.Td24) 21 mg TRANSDERMA DAILY [facility] Last Admin: 03/31/23 07:35 Dose: 21 mg Documented By: CHANCE Ondansetron HCl (Ondansetron Hcl 4 Mg/2 Ml Vial) 4 mg IVPUSH Q8H PRN PRN Reason: Nausea and Vomiting Pharmacy Consult (Consult Rx Vancomycin Dosing) 1 each MISCELLANE DAILY PRN PRN Reason: Consult order Sodium Chloride (0.9 % Sodium Chloride Flush 3 Ml Syringe) 3 ml IVFLUSH QSHIFT [facility] Last Admin: 03/31/23 07:36 Dose: 3 ml Documented By: CHANCE Labs 03/29/23 20:22 03/30/23 04:57 Microbiology Microbiology Results: Microbiology 03/30/23 Unknown Gram Stain - Final Hand Left Routine Culture - Preliminary Staphylococcus aureus 03/29/23 23:23 Gram Stain - Final Hand Left Routine Culture - Preliminary Staphylococcus aureus 03/29/23 20:18 Blood Culture - Preliminary Blood - Venous No growth after 24 hours. 03/29/23 20:23 Blood Culture - Preliminary Blood - Venous No growth after 24 hours. Assessment and Plan (1) Heroin use disorder, severe: Status: Acute (2) Methadone maintenance therapy patient: Status: Acute (3) Cellulitis of hand, left: Status: Acute (4) Abscess of left hand: Status: Acute Plan 38-year-old male with pertinent history of IV drug use disorder, opioid use disorder on methadone who presents to the emergency department for evaluation of hand infection. #. Purulent cellulitis of left hand with abscess. Underwent I&D by Orthopedic surgery, packing removed this morning and dressing changed continue IV ceftriaxone and IV vancomycin blood cultures x2 negative, wound culture growing Staph aureus, follow CBC, CRP continue analgesics. IV Dilaudid 1 mg q.4 hours for pain # acute lactic acidosis due to dehydration resolved with IV fluids #. Cocaine use disorder . Seen by Addiction Team and being followed by them closely. #. Opioid use disorder. Continue methadone DVT prohylaxis: None. Low risk Full code Will need continued inpatient hospitalization for IV antibiotics and close monitoring of left hand infection Time Spent With Patient Time: Total time managing care of this patient today ____ minutes. Quality Stroke Does the patient have a stroke diagnosis?: No VTE Prior VTE?: No VTE Risk Level:: Medical - low VTE Device Contraindication: Treatment Not Indicated VTE Drug Contraindication: Treatment Not Indicated
[2023-03-31] MEDS: HYDROmorphone HCl 1 MG/ML SYRINGE IVPUSH ×2 (14:45→18:25)
[2023-03-31 15:08] VITALS: BP 109/62; PULSE 57; RESP 16; TEMP 36.7; O2SAT 97
--- NOTE | 2023-03-31 15:58 | PC.NURSE ---
Waiting on vanco trough to hang next dose of vanco. This RN saw phlebotomy in to draw patient. Called phlebotomy @ [phone] to inquire if vial was received and was told it was collected and should be getting run.
[2023-03-31 16:33] LABS: Vancomycin Random 5.8 mcg/mL (15-20)
[2023-03-31 16:34] LABS: Creatinine Clr Calc Pharmacy 107.6; Estimated Glomerular Filt Rate > 60
--- NOTE | 2023-03-31 16:46 | HE.PHANOTE ---
RE: VANCO Patients level came back at 5.8. Patient was in surgery for most of the day so doses were missed. Regardless, renal function improved so will increase dose to 1250 mg Q12H. Will continue to monitor renal function, patients next draw for 04/01 @1500 to ensure safety vs efficacy, Predicted AUC 431
--- NOTE | 2023-03-31 17:38 | MHC.RECOVRN ---
This keno writer met with patient, patient was alert, standing, shaving, then sitting in recliner. Pt easy to engage, pleasant.Pt has extensive knowledge of harm reduction strategies, addiction/recovery supports. Pt reports has a therapist at [facility], is connected with Dental Professional at both [facility]. 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 Reviewed local recovery supports, Marielle [facility]. Pt has extensive knowledge of soft skin tissue infections, reviewed when to present to the ED. Pt verbalized understanding. Pt left with resources at the bedside.
[2023-03-31] MEDS: diphenhydrAMINE HCL 50 MG/ML VIAL IVPUSH (17:41)
[2023-03-31] MEDS: vancomycin HCL 1,250 MG in 0.9 % Sodium Chloride 250 ML 166.67 MG IV (17:41)
[2023-03-31 20:00] VITALS: BP 100/60; PULSE 69; RESP 16; TEMP 36.9; O2SAT 97
[2023-03-31] MEDS: cefTRIAXone sodium 1 GM in 0.9 % Sodium Chloride 50 ML IV (22:54)
[2023-04-01 03:08] VITALS: BP 101/58; PULSE 52; RESP 18; TEMP 36.4; O2SAT 97
[2023-04-01] MEDS: HYDROmorphone HCl 1 MG/ML SYRINGE IVPUSH ×2 (04:41→12:22)
[2023-04-01] MEDS: diphenhydrAMINE HCL 50 MG/ML VIAL IVPUSH (04:46)
[2023-04-01] MEDS: vancomycin HCL 1,250 MG in 0.9 % Sodium Chloride 250 ML 166.67 MG IV (04:46)
[2023-04-01 06:06] LABS: Hematocrit 32.3 % (42.0-52.0); Mean Corpuscular HGB Conc 34.1 g/dl (31.0-36.0); Mean Corpuscular Hemoglobin 34.7 pg (27.0-33.0); Mean Corpuscular Volume 101.9 fL (80.0-98.0); Mean Platelet Volume 8.2 fL (9.4-12.4); Platelet Count 214 X10*3/uL (160-400); Red Blood Count 3.17 X10*6/uL (4.60-5.80); Red Cell Distribution Width 16.7 % (11.0-16.0); White Blood Count 5.5 X10*3/uL (4.8-10.8)
[2023-04-01 06:20] LABS: C Reactive Protein 1.22 mg/dL (< or = 0.50); Estimated Glomerular Filt Rate > 60
[2023-04-01 07:36] VITALS: BP 108/69; PULSE 52; RESP 18; TEMP 36.1; O2SAT 97
[2023-04-01 07:37] VITALS: BP 106/66; PULSE 55; RESP 18; TEMP 36.7; O2SAT 98
--- NOTE | 2023-04-01 07:44 | PM.PNORT ---
Subjective Subjective Date of Service: 04/01/23 Interval history: POD 2 s/p left hand I&D no overnight events states his pain is not well controlled Physical Exam Vital Signs: Vital Signs: Last Vital Signs Temp 98.0 F 04/01/23 07:37 Pulse 55 04/01/23 07:37 Resp 18 04/01/23 07:37 BP 106/66 04/01/23 07:37 Pulse Ox 98 04/01/23 07:37 O2 Del Method Room Air 04/01/23 07:37 BMI result Body Mass Index 19.2 Const: General: cooperative, healthy appearing and no acute distress Resp: Effort & Inspection: normal respiratory effort and able to speak in complete sentences Cardio: Rate: regular rate Peripheral pulses: Peripheral pulses 2+ throughout GI: Palpation (GI): Soft to palpation Skin: General skin exam: no rashes or lesions noted Lesions: no lesions Rashes: no rashes Extrem: Other: left hand incision clean dry and intact,no purlance. NVI Procedures Date of Service Date of Service: 04/01/23 Progress Note: A&P Assessment and plan (1) Abscess of left hand: Status: Acute Assessment and Plan: cont iv abx-cultures pending iodoform packing removed and fluff gauzed applied with ana laura wrap encouraged rom on hand and fingers Culture sensitivities pending Time Spent With Patient Time: Total time managing care of this patient today ____ minutes. Quality Stroke Does the patient have a stroke diagnosis?: No VTE Prior VTE?: No VTE Risk Level:: Medical - low VTE Device Contraindication: Treatment Not Indicated VTE Drug Contraindication: Treatment Not Indicated
[2023-04-01] MEDS: methADONE HCl 20 MG/2 ML ORAL.CONC 87 MG PO (07:45)
[2023-04-01] MEDS: 0.9 % Sodium Chloride Flush 3 ML SYRINGE IVFLUSH (07:46)
[2023-04-01] MEDS: Nicotine 21 MG PATCH.TD24 TRANSDERMA (07:46)
--- NOTE | 2023-04-01 11:19 | MHC.CM.PN ---
PATIENT IS DC - SELF CARE RN AWARE
--- NOTE | 2023-04-01 11:43 | P.DS_ITS ---
DS: Providers Provider Date of Service: 04/01/23 Date of admission: 03/30/23 00:31 Primary care physician: Alissa Adams MD Consults: 03/30/23 02:58 Consult to Orthopedics [place]ine [place] [facility] [place] [facility] Reason for consultation: hand abscess 03/30/23 03:00 Addiction Medicine Routine Consulting Provider: Addiction Covering Reason for consultation: Cocaine use disorder DS: Diagnosis Discharge Diagnosis (1) Abscess of left hand: Status: Acute DS: Summary Hospital Course Hospital Course: Date of Service: 03/30/23 Chief Complaint: Hand infection This is a 38-year-old male with pertinent history of IV drug use disorder, opioid use disorder on methadone who presents to the emergency department for evaluation of hand infection. Patient states that started 3 days prior to presentation and has been progressive over the last 3 days. It is red, warm and associated with purulent discharge. Admits injecting into his left hand. Patient states his left hand has been infected 2 times over the last 2 months. He was at [facility] a month ago for surgical drainage of the infection. He denies fever, chills, nausea, vomiting. No chest discomfort, shortness of breath, palpitations, abdominal pain, changes in urinary or bowel habits. In the emergency department, superficial abscess was drained. Hospital course: 38-year-old male with pertinent history of IV drug use disorder, opioid use disorder on methadone who presents to the emergency department for evaluation of left hand infection and diagnosed to have Purulent cellulitis of left hand with abscess, Underwent I&D by Orthopedic surgery, subsequently packing removed and now requiring twice daily dressing, patient treated with IV ceftriaxone and IV vancomycin , blood cultures showed no growth, wound culture grew MRSA , CBC normalized CRP improved from 6-1.2, strongly recommend patient to abstain from IV drug use to prevent recurrent infections, recommended outpatient follow-up with Orthopedic surgery and twice Daily dressings. Will discharge home on doxycycline 1 tablet twice daily for 10 days # acute lactic acidosis due to dehydration resolved with IV fluids. #. Cocaine use disorder . Seen by Addiction Team and recommended outpatient follow-up. #. Opioid use disorder. Recommend to Continue methadone. Time Spent with Patient Time attestation: Total time managing care of this patient today ____ minutes. Discharge coordination time: Greater than 30 minutes Quality: Safe Use of Opioids Does Pt have an Active Cancer Diagnosis on the Problem List?: No Quality: Stroke Does the patient have a stroke diagnosis?: No Physical Exam Vital Signs: Vital Signs: Last Vital Signs Temp 98.0 F 04/01/23 07:37 Pulse 55 04/01/23 07:37 Resp 18 04/01/23 07:37 BP 106/66 04/01/23 07:37 Pulse Ox 98 04/01/23 07:37 O2 Del Method Room Air 04/01/23 07:37 BMI result Body Mass Index 19.2 Const: Other: General awake alert x3 resting comfortably in no acute distress. Neck supple no JVD. CVS regular rate rhythm, Respiratory lungs clear to auscultation, no respiratory distress, no wheeze, no rhonchi. Gastrointestinal abdomen soft, nontender, bowel sounds audible, no guarding , no rigidity. Extremities no edema. Left hand swelling and redness improved, incision dry and clean no purulent drainage or induration noted, able to flex all fingers and thumb. Neuro nonfocal Skin no rash DS: Data Data Completed and Pending Labs on day of discharge: Laboratory Results - last 24 hr 03/31/23 04/01/23 14:16 05:57 WBC 5.5 RBC 3.17 L Hgb 11.0 L Hct 32.3 L MCV 101.9 H MCH 34.7 H MCHC 34.1 RDW 16.7 H Plt Count 214 D MPV 8.2 L Absolute Nucleated RBC 0.000 Nucleated RBC % (auto) 0.0 Creatinine 0.79 0.72 Estim Creat Clear Calc 107.6 118.0 Estimated GFR > 60 > 60 C-Reactive Protein 1.22 H Random Vancomycin 5.8 L Preliminary micro results at discharge 03/29/23 20:18 Blood Culture - Preliminary Blood - Venous No growth after 48 hours. 03/29/23 20:23 Blood Culture - Preliminary Blood - Venous No growth after 48 hours. Discharge Plan Discharge Anticipated Discharge Date/Time: 04/01/23 10:59 Patient Disposition: Home, Self-Care Discharge Diagnosis: Cellulitis left hand with abscess Referrals: Alissa Adams MD [Primary Care Provider] - 1 Week Discharge Medications: New nicotine 21 mg/24 hr Patch 24 Hour 21 mg transdermal DAILY Qty: 30 0RF doxycycline hyclate 100 mg tablet 100 mg PO BID Qty: 20 0RF Continued methadone 10 mg/mL Concentrate 87 mg PO DAILY Discharge Orders: Discharge Order (Routine); Ordered 04/01/23 Ordered By: Lyric Dunn Diet: Advance to usual diet Activity on Discharge: As tolerated Stand Alone Forms: Patient Portal Discharge page Care Plan Goals: Twice daily dressing changes Oral abx - per medicine recommendations Gentle hand ROM Followup in office 04/07/23 at 12:45 Health Concerns: Continue methadone Strongly recommend to abstain from illicit drug use,/no smoking Plan of Treatment: Outpatient follow-up with primary care physician and orthopedic surgeon Dr. Glasgow as above Assessment: As above Discharge Date/Time: 04/01/23 13:07
--- NOTE | 2023-04-09 15:56 | P.CDIM_ITS ---
PROVIDER RESPONSE TEXT: To clarify, the appropriate diagnosis supported by the clinical indicators: Excisional debridement left radial hand: This involve the skin and subcutaneous tissue down to the le padmini of the sheaths around the extensor tendons. The extensor tendon sheaths did not appear to be violated. The skin and subcuta neous tissues were sharply debrided using 15. Blade and tenotomy scissors. I also utilized a small rongeur . QUERY TEXT: PHYSICIAN'S DOCUMENTATION REQUEST Date of Query: 04/08/2023 10:05 AM EDT Patient Name: INA TAYLOR Admit Date: 03/30/2023 Dear China Cedeno, A review of the medical record indicates additional documentation may be needed. Please review below and update the documentation accordingly. Clinical Indicators: OP NOTE 03/30/23 - I debrided the left radial hand wound of some superficial devitalized tissue, there was some fibrinou s exudate and this was debrided, open wound that measured 1.5cm in diameter over the dorsal radial aspect of the basal joint. There was a copious amount of creamy ye llow purulence, which we cultured. The wound did not appear to go deep to the joint. The cavity extended beneath the skin for a distance of approximately 1 and half to 2-1/2 cm depth fro m the edge of the wound circumferentially. Could you provide, in the Progress Notes, further clarification regarding the depth of the debridemen t? Excisional debridement left radial hand Please also address the Type of instrument used, Depth of debridement of the wound (skin, subcutaneou s tissue and fascia, muscle etc.) Non-excisional debridement left radial hand Please address the Depth of debridement (skin, subcutaneous tissue and fascia, muscle etc.) Other (explain)Clinically unable to determine (explain)Thank you, Tess Carbajal, CCS, CDIS Use of terms such as suspected, likely, concern for, or probable (associated with a specific diagnosi s that is being evaluated, monitored, or treated as if it exists) are acceptable and can be coded in the inpatient se tting, when documented at the time of discharge. Please use your independent medical judgment in providing your response. THIS QUERY IS PART OF THE PERMANENT MEDICAL RECORD
== END 2023-04-01 13:07 | disposition home or self-care (01) | DRG 364 ==
LOC: HO.ED 23:41 → HO.EDOVER 03-30 00:38 → HO.S3 03-30 15:52
PROVIDERS: Orthopaedic Surgery; Physician Assistant; Admitting Provider Student in an Organized Health Care Education/Training Program; Emergency Provider Emergency Medicine Emergency Medical Services; PCP Internal Medicine; Visit Provider Hospitalist
PROC: 0JBK0ZZ Excision of Left Hand Subcutaneous Tissue and Fascia, Open Approach (ICD-10-PCS; principal; 2023-03-30 15:00)
DX: L02.512 Cutaneous abscess of left hand (principal); E86.0 Dehydration; G89.18 Other acute postprocedural pain; B95.62 Methicillin resistant Staphylococcus aureus infection as the cause of diseases classified elsewhere; F11.20 Opioid dependence, uncomplicated; L03.114 Cellulitis of left upper limb; F17.210 Nicotine dependence, cigarettes, uncomplicated; Z59.02 Unsheltered homelessness; Z71.6 Tobacco abuse counseling
CPT/HCPCS: 36415; 73110; 73130; 80053; 80202; 80307; 82565; 83605; 85025; 85027; 85652; 86140; 87040; 87070; 87077; 87147; 87186; 87205; 99285; J0690; J0696; J1100; J1170; J1200; J1885; J2250; J2405; J3370; J3371

== ENCOUNTER → 2023-03-30 00:31 | Outpatient (BNV) | payer OTHER, SELFPAY | PROVIDERS: Admitting Provider Student in an Organized Health Care Education/Training Program; Emergency Provider Emergency Medicine Emergency Medical Services; PCP Internal Medicine; Visit Provider Student in an Organized Health Care Education/Training Program | DX: L02.512 Cutaneous abscess of left hand (principal) | CPT/HCPCS: 99222; 99233; 99239; 99499 ==

== ENCOUNTER → 2023-03-30 00:31 | Outpatient (BNV) | payer OTHER, SELFPAY | PROVIDERS: Admitting Provider Student in an Organized Health Care Education/Training Program; Emergency Provider Emergency Medicine Emergency Medical Services; PCP Internal Medicine; Visit Provider Physician Assistant | DX: L02.512 Cutaneous abscess of left hand (principal) | CPT/HCPCS: 11042; 99231; 99232 ==

== ENCOUNTER 2023-05-24 22:48 | Emergency (ER) | payer OTHER, SELFPAY ==
[2023-05-24 23:08] VITALS: BP 134/77; PULSE 82; RESP 18; TEMP 36.8; O2SAT 96; BMI 20.1
--- NOTE | 2023-05-25 00:28 | PC.NURSE ---
Patient presents for abscess to left cheek. Area is noted to be swollen upon assessment. No s/s of distress noted.
--- NOTE | 2023-05-25 02:17 | ED_ITS ---
HPI - Skin/Abscess/Foreign Bdy General Chief complaint: Skin/Abscess/Foreign Body Stated complaint: ?abscess Time Seen by Provider: 05/25/23 01:42 Source: patient Mode of arrival: ambulatory Limitations: no limitations History of Present Illness HPI narrative: 38-year-old male came in with for evaluation of possible pimple infection over the left zygomatic arch. Started as a pimple on the left side of the face patient tried to squeeze it, now it is getting bigger and full of pus. Related Data Home Medications Medication Instructions Recorded Confirmed methadone 10 mg/mL oral concentrate 87 mg PO DAILY 03/30/23 03/30/23 Previous Rx's Medication Instructions Recorded nicotine 21 mg/24 hr daily 21 mg transdermal DAILY #30 ea 04/01/23 transdermal patch sulfamethoxazole 800 1 tab PO Q12H #18 tabs 04/02/23 mg-trimethoprim 160 mg tablet (Bactrim DS) doxycycline hyclate 100 mg tablet 100 mg PO BID #20 tabs 05/25/23 mupirocin 2 % topical ointment 1 appl topical TID #22 grams 05/25/23 Allergies Allergy/AdvReac Type Severity Reaction Status Date / Time No Known Allergies Allergy Verified 03/29/23 19:55 Review of Systems Review of Systems: all other systems are reviewed and are negative Constitutional: Reports as per HPI and Reports no additional constitutional complaints Eyes: Reports as per HPI and Reports no additional eye complaints Reports system reviewed and no additional complaints, except as documented Cardiovascular: Reports as per HPI and Reports no additional cardiovascular complaints Respiratory: Reports as per HPI and Reports no additional respiratory complaints Gastrointestinal: Reports as per HPI and Reports no additional gastrointestinal complaints Genitourinary: Reports no additional female genitourinary complaints Musculoskeletal: Reports no additional musculoskeletal complaints Skin/Breast: 2 x 2 cm cystic lesion on the left zygomatic arch full of pus. Surrounded by area of cellulitis. Psychiatric: Reports no additional psychiatric complaints Endocrine: Reports no additional endocrine complaints Hematologic/Lymphatic: Reports no additional hematologic/lymphatic complaints Allergic/Immunologic: Reports no additional allergic/immunologic complaints Reports system reviewed and no additional complaints, except as documented and Reports Abnormal speech present Yes all other systems are reviewed and are negative PMFSH Past Medical History Medical History Substance abuse Surgical History Hx of skin graft Hx of cholecystectomy Hx of hand surgery Social History Social History Household Members: Spouse Housing: Homeless Housing Other:: tent Do you presently have visiting nurse or other home services: No Alcohol intake: current Alcohol intake frequency: holidays/special occasions only Alcohol type: beer Patient Tobacco Use Status: Current everyday Tobacco user Tobacco use type: Cigarette Cigarette Packs Per Day: 1 Cigarettes Per Day: 20.0 Substance Use Type: Crack/Cocaine and Heroin Advance Directives: No Advance Directives Information Provided: Yes service: No Physical Exam Vital Signs: Vital Signs: Last Vital Signs Temp 98.2 F 05/24/23 23:08 Pulse 82 05/24/23 23:08 Resp 18 05/24/23 23:08 BP 134/77 05/24/23 23:08 Pulse Ox 96 05/24/23 23:08 O2 Del Method Room Air 05/24/23 23:08 BMI result Body Mass Index 20.1 Course Reevaluation(s) Reevaluation #1: follicular abscess on the left zygomatic arch. using a sterile needle the area was I indeed with draining pus. Will start the patient on doxycycline and mupirocin ointment. Time: 02:22 Medical Decision Making Differential Diagnosis Differential Diagnoses: The differential diagnosis associated with the p resentation includes ( Abscess, folliculitis, cellulitis.) Admission/Observation Consideration of admission/observation: Escalation of care including admission/observation considered Discharge Plan Discharge Clinical Impression: Acute folliculitis Patient Disposition: Home, Self-Care Instructions: Folliculitis (ED) Prescriptions: New doxycycline hyclate 100 mg tablet 100 mg PO BID Qty: 20 0RF mupirocin 2 % ointment 1 appl topical TID Qty: 22 0RF Rx Instructions: apply half an inch ribbon to the left cheek area keep it away from the muco us membrane. No Action methadone 10 mg/mL Concentrate 87 mg PO DAILY nicotine 21 mg/24 hr Patch 24 Hour 21 mg transdermal DAILY Qty: 30 0RF sulfamethoxazole-trimethoprim [Bactrim DS] 800-160 mg tablet 1 tab PO Q12H Qty: 18 0RF
[2023-05-25] MEDS: Doxycycline Monohydrate 100 MG CAPSULE PO (02:39)
[2023-05-25 03:11] VITALS: BP 104/64; PULSE 50; RESP 16; O2SAT 97
--- NOTE | 2023-05-26 12:29 | PC.NURSE ---
this nurse got a call from this patient stating his scripts had not been sent to [facility] which was listed, this nurse looked at his discharge paperwork as well as his pharmacy and all seemed to be correct. [facility] provider Graciela was notified and she re-submitted the scripts to [facility]. the patient was updated.
== END 2023-05-25 03:13 | disposition home or self-care (01) ==
PROVIDERS: Emergency Provider Emergency Medicine
DX: L73.9 Follicular disorder, unspecified (principal); R23.8 Other skin changes
CPT/HCPCS: 99283; 99284